=== PATIENT | male | born 1940 | race Caucasian/White ===

== ENCOUNTER 2018-06-27 15:30 | Inpatient (IN) | payer MEDICARE, OTHER ==
[~2018-06-27] VITALS: Ht 185.4 cm; Wt 108.0 kg
[~2018-06-27 15:30] MED LIST: AMLO1TAB39 PO; CLON-285 PO; GABA-532 PO; GEMF600T4 PO; LEVO75TA PO; LISI30TA39 PO; MELO15TA13 PO; METF500T PO; PHEN-716 PO; SIMV20TA5 PO; [UNRECOGNIZED DRUG - CODE] PO
[2018-06-27] MEDS ORDERED: normal saline 1000ML IV soln IVB ONE ×2 (15:55→16:50)
[2018-06-27] MEDS ORDERED: ondansetron/PF 4mg/2ml inj IV ONE (15:55)
[2018-06-27] MEDS ORDERED: SYNJARDY PO (16:05)
[2018-06-27] MEDS ORDERED: PIOG15TA8 PO (16:07)
[2018-06-27] MEDS ORDERED: HYDR-4353 PO (16:08)
[2018-06-27] MEDS ORDERED: NPH,100V2 SQ (16:09)
[2018-06-27 16:32] LABS: BASOPHILS % (AUTO) 0 % (0-1); EOSINOPHILS % (AUTO) 0 % (0-6); HEMATOCRIT 34.5 % (42.0-52.0); HEMOGLOBIN 11.7 g/dl (14.0-17.9); LYMPHOCYTES # (AUTO) 0.6 X10'3 (1.1-4.8); LYMPHOCYTES % (AUTO) 4.2 % (21-51); MEAN CORPUSCULAR HEMOGLOBIN 32.3 PG (27.0-31.0); MEAN CORPUSCULAR HGB CONC 33.8 % (33.0-36.5); MEAN CORPUSCULAR VOLUME 95.5 FL (78-98); MEAN PLATELET VOLUME 8.3 FL (7.4-10.4); MONOCYTES # (AUTO) 0.9 X10'3 (0-0.9); MONOCYTES % (AUTO) 6.2 % (2-12); NEUTROPHILS # (AUTO) 12.8 X10'3 (1.8-7.7); NEUTROPHILS % (AUTO) 89.6 % (42-75); PLATELET COUNT 250 X10'3 (140-440); RED BLOOD COUNT 3.61 X10'6 (4.70-6.10); RED CELL DISTRIBUTION WIDTH 13.2 % (11.5-14.5); WHITE BLOOD COUNT 14.2 X10'3 (4.5-11.0)
[2018-06-27 16:53] LABS: ALANINE AMINOTRANSFERASE 24 U/L (12-78); ALBUMIN/GLOBULIN RATIO 0.6 (1.1-1.5); ALKALINE PHOSPHATASE 143 IU/L (46-116); ANION GAP 14 (8-16); ASPARTATE AMINO TRANSFERASE 44 U/L (10-37); BILIRUBIN,TOTAL 0.7 MG/DL (0.1-1.0); BLOOD UREA NITROGEN 62 MG/DL (7-18); BUN/CREATININE RATIO 23.7 (5.4-32.0); CALCIUM 8.9 MG/DL (8.5-10.1); CHLORIDE 96 MMOL/L (99-107); CREATININE 2.62 MG/DL (0.60-1.10); GLUCOSE 114 MG/DL (70-104); POTASSIUM 4.5 MMOL/L (3.5-5.1); SODIUM 133 MMOL/L (135-145); TOTAL CARBON DIOXIDE 22.8 MMOL/L (24-32); TOTAL PROTEIN 7.7 G/DL (6.4-8.2); eGFR 24 ML/MIN
[2018-06-27] MEDS ORDERED: pneumococcal 23-VAL P-sac vacc 25 mcg/0.5ml vial IMVAC ONE (17:00)
[2018-06-27 17:01] LABS: PARTIAL THROMBOPLASTIN TIME 33 SECONDS (22-32); PROTHROMBIN TIME 10.4 SECONDS (9.0-12.0)
[2018-06-27 17:07] LABS: PLATELET ESTIMATE NORMAL; TOTAL CELLS COUNTED 100
[2018-06-27 17:11] LABS: CLARITY,URINE CLOUDY (Clear); COLOR,URINE YELLOW (Yellow); GLUCOSE, URINE >=1000 mg/dl (Neg); KETONES,URINE TRACE mg/dl (Neg); LEUKOCYTE ESTERASE ,URINE NEGATIVE (Neg); NITRITES, URINE NEGATIVE (Neg); OCCULT BLOOD,URINE LARGE (Neg); PH,URINE 5.5 (4.8-8.0); PROTEIN,URINE 100 mg/dl (Neg)
[2018-06-27 17:29] LABS: UA COLLECTION TYPE CLN CATCH MIDSTREAM
[2018-06-27 17:31] LABS: COARSE GRANULAR CAST 0-3 /LPF (NEGATIVE); HYALINE CASTS 0-3 /LPF (NEGATIVE); MUCUS STRANDS FEW /LPF (Neg); SQUAMOUS EPITHELIAL CELL,UR FEW /LPF (FEW)
[2018-06-27 17:32] LABS: AMORPHOUS URATES 2+; BACTERIA,URINE NONE SEEN /HPF (Neg); RBC,URINE NONE SEEN /HPF (0-2); TRANSITIONAL EPI CELLS,URINE FEW /HPF; WBC,URINE 0-4 /HPF (0-4)
[2018-06-27] MEDS ORDERED: levoFLOXACIN-Levaquin 500mg/D5 100 ML IV ONE (17:45)
[2018-06-27] MEDS ORDERED: HYDROcodone/acetaminophen 10/325mg tab PO ONE (18:45)
[2018-06-27] MEDS: normal saline 1000ml 1,000 ML IV SCH (19:46)
[2018-06-27] MEDS ORDERED: HYDROcodone/acetaminophen 5mg/325mg tablet PO PRN (19:50)
[2018-06-27] MEDS ORDERED: mag hydrox/Alum hydrox/simeth 30ml oral suspension PO PRN (19:50)
[2018-06-27] MEDS ORDERED: acetaminophen 325mg tablet PO PRN ×2 (19:50)
[2018-06-27] MEDS ORDERED: magnesium hydroxide 30ml (MOM) UD suspension PO PRN (19:50)
[2018-06-27] MEDS ORDERED: ondansetron/PF 4mg/2ml inj IV PRN (19:50)
[2018-06-27] MEDS ORDERED: dextrose 50%-water 50ml dispensing syringe IV PRN ×2 (19:50)
[2018-06-27] MEDS ORDERED: glucagon, human recombinant 1mg kit SUBCUT PRN (19:50)
[2018-06-27] MEDS ORDERED: MESSAGE TO PHARMACY PO ONE (19:50)
[2018-06-27] MEDS ORDERED: dextrose ORAL solution 15 GM/59 ML bottle PO PRN ×2 (19:50)
[2018-06-27 20:25] LABS: HEMOGLOBIN A1C 7.2 % (4.5-6.2)
[2018-06-27] MEDS: gabapentin 300mg capsule PO SCH (20:51)
[2018-06-27] MEDS: insulin glargine (Lantus) pen - multi-dose SQ SCH (21:00)
[2018-06-27] MEDS: gemfibrozil 600mg tablet PO SCH (22:14)
[2018-06-27 23:53] VITALS: BP 128/70
[2018-06-28 05:57] LABS: BASOPHILS % (AUTO) 0 % (0-1); EOSINOPHILS # (AUTO) 0.1 X10'3 (0-0.9); EOSINOPHILS % (AUTO) 0.9 % (0-6); HEMATOCRIT 34.2 % (42.0-52.0); HEMOGLOBIN 11.5 g/dl (14.0-17.9); LYMPHOCYTES # (AUTO) 0.6 X10'3 (1.1-4.8); LYMPHOCYTES % (AUTO) 3.8 % (21-51); MEAN CORPUSCULAR HEMOGLOBIN 32.6 PG (27.0-31.0); MEAN CORPUSCULAR HGB CONC 33.7 % (33.0-36.5); MEAN CORPUSCULAR VOLUME 96.6 FL (78-98); MEAN PLATELET VOLUME 8.4 FL (7.4-10.4); MONOCYTES # (AUTO) 0.9 X10'3 (0-0.9); NEUTROPHILS # (AUTO) 13.2 X10'3 (1.8-7.7); NEUTROPHILS % (AUTO) 89.3 % (42-75); PLATELET COUNT 250 X10'3 (140-440); RED BLOOD COUNT 3.54 X10'6 (4.70-6.10); RED CELL DISTRIBUTION WIDTH 13.6 % (11.5-14.5); WHITE BLOOD COUNT 14.8 X10'3 (4.5-11.0)
[2018-06-28 06:12] LABS: ALBUMIN 2.7 G/DL (3.4-5.0); ANION GAP 15 (8-16); BLOOD UREA NITROGEN 47 MG/DL (7-18); BUN/CREATININE RATIO 23.3 (5.4-32.0); CALCIUM 8.4 MG/DL (8.5-10.1); CHLORIDE 102 MMOL/L (99-107); CREATININE 2.02 MG/DL (0.60-1.10); GLUCOSE 164 MG/DL (70-104); POTASSIUM 5.1 MMOL/L (3.5-5.1); SODIUM 135 MMOL/L (135-145); TOTAL CARBON DIOXIDE 18.2 MMOL/L (24-32); eGFR 32 ML/MIN
[2018-06-28 08:00] VITALS: BP 114/61
[2018-06-28] MEDS ORDERED: AMLODIPINE BES PO SCH (08:00)
[2018-06-28] MEDS ORDERED: LISINOPRIL 30 MG PO SCH (08:00)
[2018-06-28] MEDS ORDERED: OLMESARTAN MED PO SCH (08:00)
[2018-06-28] MEDS ORDERED: losartan 50mg tablet PO SCH (08:00)
[2018-06-28] MEDS ORDERED: amLODIPine 5mg tablet PO SCH (08:00)
[2018-06-28] MEDS ORDERED: levoFLOXACIN-Levaquin 500mg/D5 100 ML IV SCH (08:00)
[2018-06-28] MEDS: lisinopril 10 MG tablet PO SCH (08:06)
[2018-06-28] MEDS: gemfibrozil 600mg tablet PO SCH ×2 (08:06→19:39)
[2018-06-28] MEDS: levoTHYROXINE 75mcg tablet PO SCH (08:07)
[2018-06-28] MEDS: gabapentin 300mg capsule PO SCH ×2 (08:07→19:38)
[2018-06-28] MEDS: enoxaparin 40mg/0.4ml syringe SUBCUT SCH (08:07)
[2018-06-28] MEDS: pioglitazone 15mg tablet PO SCH (09:53)
[2018-06-28] MEDS: normal saline 1000ml 1,000 ML IV SCH (09:55)
[2018-06-28 12:00] VITALS: BP 122/65
[2018-06-28] MEDS: insulin Lispro (HumaLOG) vial - multi-dose SQ SCH ×2 (13:19→19:03)
[2018-06-28] MEDS: lactobacillus rhamnosus 10,000 MMU CELLS/CAPSULE PO SCH (19:38)
[2018-06-28 20:00] VITALS: BP 140/62
[2018-06-28] MEDS: insulin glargine (Lantus) pen - multi-dose SQ SCH (22:07)
[2018-06-29] VITALS: BP 121/54
[2018-06-29 05:33] LABS: BASOPHILS % (AUTO) 0 % (0-1); EOSINOPHILS # (AUTO) 0.1 X10'3 (0-0.9); EOSINOPHILS % (AUTO) 0.8 % (0-6); HEMATOCRIT 33.9 % (42.0-52.0); HEMOGLOBIN 11.5 g/dl (14.0-17.9); LYMPHOCYTES # (AUTO) 0.9 X10'3 (1.1-4.8); LYMPHOCYTES % (AUTO) 6.3 % (21-51); MEAN CORPUSCULAR HEMOGLOBIN 32.7 PG (27.0-31.0); MEAN CORPUSCULAR HGB CONC 33.9 % (33.0-36.5); MEAN CORPUSCULAR VOLUME 96.4 FL (78-98); MEAN PLATELET VOLUME 8.3 FL (7.4-10.4); MONOCYTES # (AUTO) 0.9 X10'3 (0-0.9); MONOCYTES % (AUTO) 6.1 % (2-12); NEUTROPHILS # (AUTO) 12.7 X10'3 (1.8-7.7); NEUTROPHILS % (AUTO) 86.8 % (42-75); PLATELET COUNT 271 X10'3 (140-440); RED BLOOD COUNT 3.52 X10'6 (4.70-6.10); RED CELL DISTRIBUTION WIDTH 13.8 % (11.5-14.5); WHITE BLOOD COUNT 14.7 X10'3 (4.5-11.0)
[2018-06-29 05:42] LABS: ALBUMIN 2.4 G/DL (3.4-5.0); ANION GAP 19 (8-16); BLOOD UREA NITROGEN 41 MG/DL (7-18); BUN/CREATININE RATIO 27.9 (5.4-32.0); CALCIUM 8.9 MG/DL (8.5-10.1); CHLORIDE 102 MMOL/L (99-107); CREATININE 1.47 MG/DL (0.60-1.10); GLUCOSE 158 MG/DL (70-104); POTASSIUM 4.4 MMOL/L (3.5-5.1); SODIUM 136 MMOL/L (135-145); TOTAL CARBON DIOXIDE 15.5 MMOL/L (24-32); eGFR 47 ML/MIN
[2018-06-29 07:05] VITALS: BP 139/66
[2018-06-29] MEDS: levoTHYROXINE 75mcg tablet PO SCH (07:20)
[2018-06-29] MEDS: lisinopril 10 MG tablet PO SCH (07:20)
[2018-06-29] MEDS: pioglitazone 15mg tablet PO SCH (07:20)
[2018-06-29] MEDS: lactobacillus rhamnosus 10,000 MMU CELLS/CAPSULE PO SCH ×2 (07:20→20:21)
[2018-06-29] MEDS: gabapentin 300mg capsule PO SCH ×2 (07:20→20:22)
[2018-06-29] MEDS: gemfibrozil 600mg tablet PO SCH ×2 (07:20→20:22)
[2018-06-29] MEDS: enoxaparin 40mg/0.4ml syringe SUBCUT SCH (07:21)
[2018-06-29] MEDS ORDERED: levoFLOXACIN-Levaquin 250mg/D5 100 ML IV SCH (08:00)
[2018-06-29] MEDS: insulin Lispro (HumaLOG) vial - multi-dose SQ SCH ×3 (09:42→18:31)
[2018-06-29] MEDS ORDERED: EMPA1TAB7 PO (10:56)
[2018-06-29] MEDS: normal saline 1000ml 1,000 ML IV SCH (11:40)
[2018-06-29 12:09] VITALS: BP 139/67
[2018-06-29] MEDS: CefTRIAXone/D5W-Rocephin 1gm 50 ML IV SCH (12:53)
[2018-06-29] MEDS ORDERED: levoFLOXACIN-Levaquin 250mg/D5 50 ML IV SCH (14:07)
[2018-06-29 19:00] VITALS: BP 142/55
[2018-06-29] MEDS: HYDROcodone/acetaminophen 10/325mg tab PO PRN (20:23)
[2018-06-29] MEDS: insulin glargine (Lantus) pen - multi-dose SQ SCH (22:19)
[2018-06-30] VITALS: BP 126/65
[2018-06-30] MEDS: normal saline 1000ml 1,000 ML IV SCH ×2 (01:01→16:26)
[2018-06-30 05:59] LABS: BASOPHILS # (AUTO) 0.1 X10'3 (0-0.2); BASOPHILS % (AUTO) 0.9 % (0-1); EOSINOPHILS % (AUTO) 0 % (0-6); HEMATOCRIT 34.5 % (42.0-52.0); HEMOGLOBIN 11.6 g/dl (14.0-17.9); LYMPHOCYTES % (AUTO) 5.9 % (21-51); MEAN CORPUSCULAR HEMOGLOBIN 32.4 PG (27.0-31.0); MEAN CORPUSCULAR HGB CONC 33.5 % (33.0-36.5); MEAN CORPUSCULAR VOLUME 96.7 FL (78-98); MEAN PLATELET VOLUME 8.6 FL (7.4-10.4); MONOCYTES # (AUTO) 1.1 X10'3 (0-0.9); MONOCYTES % (AUTO) 6.4 % (2-12); NEUTROPHILS # (AUTO) 14.7 X10'3 (1.8-7.7); NEUTROPHILS % (AUTO) 86.8 % (42-75); PLATELET COUNT 327 X10'3 (140-440); RED BLOOD COUNT 3.56 X10'6 (4.70-6.10); RED CELL DISTRIBUTION WIDTH 13.8 % (11.5-14.5)
[2018-06-30 06:02] LABS: ALBUMIN 2.2 G/DL (3.4-5.0); ANION GAP 16 (8-16); BLOOD UREA NITROGEN 37 MG/DL (7-18); BUN/CREATININE RATIO 27.8 (5.4-32.0); CALCIUM 9.1 MG/DL (8.5-10.1); CHLORIDE 104 MMOL/L (99-107); CREATININE 1.33 MG/DL (0.60-1.10); GLUCOSE 157 MG/DL (70-104); POTASSIUM 4.3 MMOL/L (3.5-5.1); SODIUM 141 MMOL/L (135-145); TOTAL CARBON DIOXIDE 20.6 MMOL/L (24-32); eGFR 52 ML/MIN
[2018-06-30 07:00] VITALS: BP 130/74
[2018-06-30] MEDS: enoxaparin 40mg/0.4ml syringe SUBCUT SCH (07:16)
[2018-06-30] MEDS: gemfibrozil 600mg tablet PO SCH ×2 (07:17→19:26)
[2018-06-30] MEDS: CefTRIAXone/D5W-Rocephin 1gm 50 ML IV SCH (07:17)
[2018-06-30] MEDS: lisinopril 10 MG tablet PO SCH (07:18)
[2018-06-30] MEDS: pioglitazone 15mg tablet PO SCH (07:18)
[2018-06-30] MEDS: lactobacillus rhamnosus 10,000 MMU CELLS/CAPSULE PO SCH ×2 (07:19→19:26)
[2018-06-30] MEDS: levoTHYROXINE 75mcg tablet PO SCH (07:19)
[2018-06-30] MEDS: gabapentin 300mg capsule PO SCH ×2 (07:19→19:26)
[2018-06-30] MEDS: HYDROcodone/acetaminophen 10/325mg tab PO PRN ×2 (07:28→19:27)
[2018-06-30] MEDS ORDERED: iohexol 350MG/ML 100ml bottle IV ONE (07:59)
[2018-06-30] MEDS ORDERED: levoFLOXACIN-Levaquin 250mg/D5 50 ML IV SCH (08:00)
[2018-06-30] MEDS: MESSAGE TO NURSING PO NR ×2 (10:10→10:11)
[2018-06-30 11:00] VITALS: BP 121/70
[2018-06-30 11:40] LABS: PLATELET ESTIMATE NORMAL; TOTAL CELLS COUNTED 100
[2018-06-30] MEDS: insulin Lispro (HumaLOG) vial - multi-dose SQ SCH ×2 (13:18→19:16)
[2018-06-30] MEDS: cefepime 2g/NS 100ml ADVANTAGE 100 ML IV SCH (16:25)
[2018-06-30 20:00] VITALS: BP 150/67
[2018-06-30] MEDS: insulin glargine (Lantus) pen - multi-dose SQ SCH (21:19)
[2018-07-01] VITALS: BP 121/59
[2018-07-01] MEDS: cefepime 2g/NS 100ml ADVANTAGE 100 ML IV SCH ×2 (04:48→15:17)
[2018-07-01] MEDS: normal saline 1000ml 1,000 ML IV SCH ×2 (04:49→21:34)
[2018-07-01 05:54] LABS: BASOPHILS % (AUTO) 0 % (0-1); EOSINOPHILS # (AUTO) 0.3 X10'3 (0-0.9); EOSINOPHILS % (AUTO) 1.8 % (0-6); HEMATOCRIT 32.9 % (42.0-52.0); HEMOGLOBIN 10.9 g/dl (14.0-17.9); LYMPHOCYTES # (AUTO) 1.2 X10'3 (1.1-4.8); LYMPHOCYTES % (AUTO) 7.8 % (21-51); MEAN CORPUSCULAR HEMOGLOBIN 32.1 PG (27.0-31.0); MEAN CORPUSCULAR HGB CONC 33.2 % (33.0-36.5); MEAN CORPUSCULAR VOLUME 96.8 FL (78-98); MONOCYTES # (AUTO) 1.2 X10'3 (0-0.9); NEUTROPHILS # (AUTO) 12.4 X10'3 (1.8-7.7); NEUTROPHILS % (AUTO) 82.4 % (42-75); PLATELET COUNT 375 X10'3 (140-440); WHITE BLOOD COUNT 15.1 X10'3 (4.5-11.0)
[2018-07-01 06:01] LABS: ANION GAP 14 (8-16); BLOOD UREA NITROGEN 33 MG/DL (7-18); BUN/CREATININE RATIO 28.2 (5.4-32.0); CALCIUM 8.7 MG/DL (8.5-10.1); CHLORIDE 106 MMOL/L (99-107); CREATININE 1.17 MG/DL (0.60-1.10); GLUCOSE 148 MG/DL (70-104); POTASSIUM 4.1 MMOL/L (3.5-5.1); SODIUM 141 MMOL/L (135-145); TOTAL CARBON DIOXIDE 21.3 MMOL/L (24-32); eGFR 61 ML/MIN
[2018-07-01 07:18] LABS: PLATELET ESTIMATE NORMAL; TOTAL CELLS COUNTED 100
[2018-07-01 07:22] VITALS: BP 126/64
[2018-07-01] MEDS: enoxaparin 40mg/0.4ml syringe SUBCUT SCH (07:38)
[2018-07-01] MEDS: lisinopril 10 MG tablet PO SCH (07:39)
[2018-07-01] MEDS: gemfibrozil 600mg tablet PO SCH ×2 (07:39→21:33)
[2018-07-01] MEDS: levoTHYROXINE 75mcg tablet PO SCH (07:40)
[2018-07-01] MEDS: lactobacillus rhamnosus 10,000 MMU CELLS/CAPSULE PO SCH ×2 (07:40→21:33)
[2018-07-01] MEDS: gabapentin 300mg capsule PO SCH ×2 (07:40→21:33)
[2018-07-01] MEDS: pioglitazone 15mg tablet PO SCH (07:40)
[2018-07-01] MEDS: HYDROcodone/acetaminophen 10/325mg tab PO PRN ×2 (07:50→21:34)
[2018-07-01] MEDS: insulin Lispro (HumaLOG) vial - multi-dose SQ SCH ×3 (08:21→18:49)
[2018-07-01] MEDS: MESSAGE TO NURSING PO NR (10:26)
[2018-07-01 11:53] VITALS: BP 121/53
[2018-07-01] MEDS ORDERED: lactose-reduced food (Ensure High Protein) 237ml bottle PO SCH (18:00)
[2018-07-01 20:00] VITALS: BP 144/86
[2018-07-01] MEDS: insulin glargine (Lantus) pen - multi-dose SQ SCH (21:40)
[2018-07-02] VITALS: BP 138/68
[2018-07-02] MEDS: cefepime 2g/NS 100ml ADVANTAGE 100 ML IV SCH (05:01)
[2018-07-02 06:05] LABS: BASOPHILS # (AUTO) 0.1 X10'3 (0-0.2); BASOPHILS % (AUTO) 1.2 % (0-1); EOSINOPHILS # (AUTO) 0.1 X10'3 (0-0.9); EOSINOPHILS % (AUTO) 0.9 % (0-6); HEMATOCRIT 36.4 % (42.0-52.0); HEMOGLOBIN 11.9 g/dl (14.0-17.9); LYMPHOCYTES # (AUTO) 1.4 X10'3 (1.1-4.8); LYMPHOCYTES % (AUTO) 11.1 % (21-51); MEAN CORPUSCULAR HEMOGLOBIN 31.7 PG (27.0-31.0); MEAN CORPUSCULAR HGB CONC 32.8 % (33.0-36.5); MEAN CORPUSCULAR VOLUME 96.5 FL (78-98); MEAN PLATELET VOLUME 8.2 FL (7.4-10.4); MONOCYTES # (AUTO) 0.8 X10'3 (0-0.9); MONOCYTES % (AUTO) 5.9 % (2-12); NEUTROPHILS # (AUTO) 10.2 X10'3 (1.8-7.7); NEUTROPHILS % (AUTO) 80.9 % (42-75); PLATELET COUNT 439 X10'3 (140-440); RED BLOOD COUNT 3.77 X10'6 (4.70-6.10); RED CELL DISTRIBUTION WIDTH 14.5 % (11.5-14.5); WHITE BLOOD COUNT 12.7 X10'3 (4.5-11.0)
[2018-07-02 06:28] LABS: ALBUMIN 2.1 G/DL (3.4-5.0); ANION GAP 14 (8-16); BLOOD UREA NITROGEN 27 MG/DL (7-18); BUN/CREATININE RATIO 24.5 (5.4-32.0); CALCIUM 8.9 MG/DL (8.5-10.1); CHLORIDE 106 MMOL/L (99-107); GLUCOSE 144 MG/DL (70-104); POTASSIUM 3.7 MMOL/L (3.5-5.1); SODIUM 141 MMOL/L (135-145); TOTAL CARBON DIOXIDE 21.3 MMOL/L (24-32); eGFR 65 ML/MIN
[2018-07-02 06:32] LABS: TOTAL CELLS COUNTED 100
[2018-07-02 06:33] LABS: PLATELET ESTIMATE NORMAL
[2018-07-02 06:55] VITALS: BP 145/70
[2018-07-02] MEDS: lactobacillus rhamnosus 10,000 MMU CELLS/CAPSULE PO SCH (07:54)
[2018-07-02] MEDS: gemfibrozil 600mg tablet PO SCH (07:55)
[2018-07-02] MEDS: pioglitazone 15mg tablet PO SCH (07:55)
[2018-07-02] MEDS: levoTHYROXINE 75mcg tablet PO SCH (07:55)
[2018-07-02] MEDS: gabapentin 300mg capsule PO SCH (07:56)
[2018-07-02] MEDS: HYDROcodone/acetaminophen 10/325mg tab PO PRN (07:58)
[2018-07-02] MEDS: lisinopril 10 MG tablet PO SCH (07:58)
[2018-07-02] MEDS: enoxaparin 40mg/0.4ml syringe SUBCUT SCH (08:01)
[2018-07-02] MEDS: insulin Lispro (HumaLOG) vial - multi-dose SQ SCH ×2 (08:46→13:23)
[2018-07-02] MEDS ORDERED: CEFD300C3 PO (10:50)
[2018-07-02] MEDS: normal saline 1000ml 1,000 ML IV SCH (11:00)
[2018-07-02 11:47] VITALS: BP 145/64
== END 2018-07-02 13:51 | disposition home or self-care (01) | DRG 871 ==
LOC: ER 15:32 → ED HOLD 19:46 → EDBEDREQ 20:27 → SUR 3N 21:00
PROVIDERS: ADMIT Hospitalist; ATTEND Family Medicine
PROC: B32T1ZZ Computerized Tomography (CT Scan) of Left Pulmonary Artery using Low Osmolar Contrast (ICD-10-PCS; principal; 2018-06-30)
PROC: B3201ZZ Computerized Tomography (CT Scan) of Thoracic Aorta using Low Osmolar Contrast (ICD-10-PCS; 2018-06-30)
PROC: B32S1ZZ Computerized Tomography (CT Scan) of Right Pulmonary Artery using Low Osmolar Contrast (ICD-10-PCS; 2018-06-30)
DX: A41.9 Sepsis, unspecified organism (principal); J18.9 Pneumonia, unspecified organism; E44.1 Mild protein-calorie malnutrition; E87.1 Hypo-osmolality and hyponatremia; N17.9 Acute kidney failure, unspecified; R04.2 Hemoptysis; E03.9 Hypothyroidism, unspecified; E11.42 Type 2 diabetes mellitus with diabetic polyneuropathy; E86.0 Dehydration; I10 Essential (primary) hypertension; I25.10 Atherosclerotic heart disease of native coronary artery without angina pectoris; Z28.21 Immunization not carried out because of patient refusal; Z68.31 Body mass index [BMI] 31.0-31.9, adult
CPT/HCPCS: 36415; 70450; 71045; 71275; 80048; 80053; 81001; 82948; 83036; 83605; 84443; 84484; 85025; 85610; 85730; 87040; 87070; 87502; 87503; 90732; 93005; 94667; 94760; 96361; 96365; 97110; 97116; 97161; 97535; 99285; G0378; J0692; J0696; J1650; J1815; J1956; J2405; J7030; Q9967

== ENCOUNTER 2020-12-12 05:38 | Day surgery (SDC) | payer MEDICARE, OTHER ==
[2020-12-11 14:25] LABS: BASOPHILS % (AUTO) 0.2 % (0-1); EOSINOPHILS # (AUTO) 0.1 X10'3 (0-0.9); EOSINOPHILS % (AUTO) 0.9 % (0-6); HEMATOCRIT 42.7 % (42.0-52.0); HEMOGLOBIN 14.4 g/dl (14.0-17.9); LYMPHOCYTES # (AUTO) 1.7 X10'3 (1.1-4.8); MEAN CORPUSCULAR HEMOGLOBIN 32.6 PG (27.0-31.0); MEAN CORPUSCULAR HGB CONC 33.7 g/dL (33.0-36.5); MEAN CORPUSCULAR VOLUME 96.9 FL (78-98); MONOCYTES # (AUTO) 0.6 X10'3 (0-0.9); MONOCYTES % (AUTO) 7.6 % (2-12); NEUTROPHILS # (AUTO) 5.2 X10'3 (1.8-7.7); NEUTROPHILS % (AUTO) 69.3 % (42-75); PLATELET COUNT 231 X10'3 (140-440); RED CELL DISTRIBUTION WIDTH 13.3 % (11.5-14.5); WHITE BLOOD COUNT 7.5 X10'3 (4.5-11.0)
[2020-12-11 14:29] LABS: ALBUMIN 4.1 G/DL (3.4-5.0); ANION GAP 10 (8-16); BLOOD UREA NITROGEN 22 MG/DL (7-18); BUN/CREATININE RATIO 16.8 (5.4-32.0); CALCIUM 9.4 MG/DL (8.5-10.1); CHLORIDE 107 MMOL/L (99-107); CREATININE 1.31 MG/DL (0.60-1.10); GLUCOSE 261 MG/DL (70-104); POTASSIUM 4.1 MMOL/L (3.5-5.1); SODIUM 144 MMOL/L (135-145); eGFR 53 ML/MIN
[2020-12-11 14:32] LABS: PARTIAL THROMBOPLASTIN TIME 25 SECONDS (22-32)
[~2020-12-12] VITALS: Ht 177.8 cm; Wt 90.5 kg
[2020-12-12] VITALS (21 sets, daily range): BP systolic 111–194; BP diastolic 57–98
[~2020-12-12 05:38] MED LIST changes: -CLON-285 PO; +EMPA1TAB7 PO; -GEMF600T4 PO; +GEMF600T89 PO; +HYDR-4353 PO; -MELO15TA13 PO; -METF500T PO; +NPH,100V2 SQ; -PHEN-716 PO; +PIOG15TA8 PO; -SIMV20TA5 PO; -[UNRECOGNIZED DRUG - CODE] PO
[2020-12-12] MEDS ORDERED: LORazepam 0.5 MG tablet PO PRN ×2 (06:10→07:50)
[2020-12-12] MEDS ORDERED: diphenhydrAMINE 25mg capsule PO PRN (06:10)
[2020-12-12] MEDS ORDERED: normal saline 1,000 ML IV SCH (06:10)
[2020-12-12] MEDS ORDERED: AMLO5TAB16 PO (06:35)
[2020-12-12] MEDS ORDERED: FLO0.4C PO (06:35)
[2020-12-12] MEDS ORDERED: ATOR20TA66 PO (06:35)
[2020-12-12] MEDS ORDERED: FENO145T25 PO (06:35)
[2020-12-12] MEDS ORDERED: LEVO75TA7 PO (06:35)
[2020-12-12] MEDS ORDERED: GEMF600T PO (06:37)
[2020-12-12] MEDS ORDERED: LANTUS SQ (06:37)
[2020-12-12] MEDS ORDERED: LIDOcaine/PRILOcaine 5gm cream TP STA (07:01)
[2020-12-12] MEDS ORDERED: iohexol 350 MG/ML 50ML vial IV ONE ×2 (07:23→09:35)
[2020-12-12] MEDS ORDERED: midazolam 1 mg/ML 2ml injection ONE (07:23)
[2020-12-12] MEDS ORDERED: verapamil 2.5 mg/ml inj IV ONE (07:23)
[2020-12-12] MEDS ORDERED: heparin 1,000unit/ml 10ml vial 10 ML ONE ×2 (07:23→10:00)
[2020-12-12] MEDS ORDERED: fentaNYL/PF 50MCG/1 ML 2ML syringe ONE (07:23)
[2020-12-12] MEDS ORDERED: iohexol 350MG/ML 100ml bottle IV ONE ×2 (07:23→09:03)
[2020-12-12] MEDS ORDERED: LIDOcaine 1% (10mg/ml)w/preservative injection 20ml MDV ONE (07:23)
[2020-12-12] MEDS ORDERED: nitroGLYCERIN-Tridil 50MG/D5W 250 ML IV ONE (07:30)
[2020-12-12] MEDS ORDERED: LIDOcaine/PRILOcaine 5gm cream TP ONE (07:50)
[2020-12-12] MEDS ORDERED: sodium bicarbonate (8.4%) inj. 75 MEQ in dextrose 5% water 500ml 500 ML IV SCH ×2 (08:20→10:30)
[2020-12-12] MEDS ORDERED: heparin 25,000 UNIT/250ml bag 250 ML IV ONE (09:06)
[2020-12-12] MEDS ORDERED: clopidogrel 300mg tablet ONE (09:54)
[2020-12-12] MEDS ORDERED: HYDROcodone/acetaminophen 5mg/325mg tablet PO PRN (10:30)
[2020-12-12] MEDS ORDERED: HYDROcodone/acetaminophen 10/325mg tab PO PRN (10:30)
[2020-12-12] MEDS ORDERED: acetylcysteine 200 MG/ml 4ml vial PO ONE (10:30)
[2020-12-12] MEDS ORDERED: ticagrelor 90mg tablet PO SCH (20:00)
== END 2020-12-12 20:00 | disposition home or self-care (01) ==
LOC: SSTAY O 05:38
PROVIDERS: ATTEND Internal Medicine Cardiovascular Disease
DX: R94.39 Abnormal result of other cardiovascular function study (principal); I25.10 Atherosclerotic heart disease of native coronary artery without angina pectoris; I10 Essential (primary) hypertension; E78.5 Hyperlipidemia, unspecified; E11.9 Type 2 diabetes mellitus without complications; E66.3 Overweight; Z68.28 Body mass index [BMI] 28.0-28.9, adult; G47.33 Obstructive sleep apnea (adult) (pediatric); I65.21 Occlusion and stenosis of right carotid artery; Z98.890 Other specified postprocedural states; Z72.89 Other problems related to lifestyle; Z79.899 Other long term (current) drug therapy; Z79.4 Long term (current) use of insulin
CPT/HCPCS: 36415; 76937; 80048; 82948; 85025; 85347; 85610; 85730; 93005; 93458; 99152; 99153; C1725; C1751; C1760; C1769; C1874; C1894; C9600; J1644; J2001; J2250; J3010; J7030; J7040; Q0163; Q9967; A4620; A5120; A6258; A6449; J3490

== ENCOUNTER 2022-11-02 11:04 | Emergency (ER) | payer MEDICARE, OTHER ==
[~2022-11-02] VITALS: Ht 177.8 cm; Wt 100.0 kg
[~2022-11-02 11:04] MED LIST changes: -AMLO1TAB39 PO; +AMLO5TAB16 PO; +ATOR20TA66 PO; +FENO145T25 PO; +FLO0.4C PO; +GEMF600T PO; -HYDR-4353 PO; +LANTUS SQ; -LEVO75TA PO; +LEVO75TA7 PO; -NPH,100V2 SQ; -PIOG15TA8 PO
[2022-11-02 12:06] LABS: BASOPHILS % (AUTO) 0.1 % (0-1); EOSINOPHILS % (AUTO) 0.1 % (0-6); HEMOGLOBIN 11.9 g/dl (14.0-17.9); LYMPHOCYTES # (AUTO) 1.3 X10'3 (1.1-4.8); LYMPHOCYTES % (AUTO) 7.1 % (21-51); MEAN CORPUSCULAR HEMOGLOBIN 32.7 PG (27.0-31.0); MEAN CORPUSCULAR HGB CONC 33.2 g/dL (33.0-36.5); MEAN CORPUSCULAR VOLUME 98.7 FL (78-98); MEAN PLATELET VOLUME 9.5 FL (7.4-10.4); MONOCYTES # (AUTO) 1.3 X10'3 (0-0.9); MONOCYTES % (AUTO) 7.4 % (2-12); NEUTROPHILS % (AUTO) 85.3 % (42-75); PLATELET COUNT 227 X10'3 (140-440); RED BLOOD COUNT 3.65 X10'6 (4.70-6.10); RED CELL DISTRIBUTION WIDTH 13.5 % (11.5-14.5); WHITE BLOOD COUNT 17.6 X10'3 (4.5-11.0)
[2022-11-02 12:14] LABS: CLARITY,URINE CLOUDY (Clear); COLOR,URINE ORANGE (Yellow); GLUCOSE, URINE 100 mg/dl (Neg); KETONES,URINE NEGATIVE (Neg); NITRITES, URINE POSITIVE (Neg); OCCULT BLOOD,URINE LARGE (Neg); PH,URINE 7.5 (4.8-8.0); PROTEIN,URINE 100 mg/dl (Neg)
[2022-11-02 12:15] LABS: LEUKOCYTE ESTERASE ,URINE MODERATE (Neg)
[2022-11-02 12:18] LABS: UA COLLECTION TYPE CLN CATCH MIDSTREAM
[2022-11-02 12:22] LABS: ALANINE AMINOTRANSFERASE 38 U/L (12-78); ALBUMIN 3.4 G/DL (3.4-5.0); ALKALINE PHOSPHATASE 48 IU/L (46-116); ANION GAP 13 (8-16); ASPARTATE AMINO TRANSFERASE 30 U/L (10-37); BILIRUBIN,TOTAL 1.1 MG/DL (0.1-1.0); BLOOD UREA NITROGEN 20 MG/DL (7-18); CALCIUM 9.4 MG/DL (8.5-10.1); CHLORIDE 103 MMOL/L (99-107); CREATININE 1.43 MG/DL (0.60-1.10); GLUCOSE 206 MG/DL (70-104); POTASSIUM 4.5 MMOL/L (3.5-5.1); SODIUM 139 MMOL/L (135-145); TOTAL CARBON DIOXIDE 23.5 MMOL/L (24-32); TOTAL PROTEIN 6.7 G/DL (6.4-8.2); eGFR 47 ML/MIN
[2022-11-02 12:30] LABS: BACTERIA,URINE 4+ /HPF (Neg); MUCUS STRANDS FEW /LPF (Neg); RBC,URINE TNTC /HPF (0-2); SQUAMOUS EPITHELIAL CELL,UR FEW /LPF (FEW)
[2022-11-02] MEDS ORDERED: amox tr/potassium clavulanate 875/125mg TAB PO ONE (13:00)
[2022-11-02] MEDS ORDERED: PHEN-824 PO (13:05)
[2022-11-02] MEDS ORDERED: AMOX-117 PO (13:05)
[2022-11-02] MEDS ORDERED: phenazopyridine 100mg tablet PO ONE (13:10)
[2022-11-02 13:22] VITALS: BP 132/61
== END 2022-11-02 13:44 | disposition home or self-care (01) ==
LOC: ER 11:05
DX: N39.0 Urinary tract infection, site not specified (principal); I10 Essential (primary) hypertension; E11.9 Type 2 diabetes mellitus without complications
CPT/HCPCS: 36415; 80053; 81001; 85025; 87077; 87088; 87186; 99283

== ENCOUNTER 2022-11-06 15:32 | Emergency (ER) | payer MEDICARE, OTHER ==
[~2022-11-06] VITALS: Ht 177.8 cm; Wt 90.0 kg
[~2022-11-06 15:32] MED LIST changes: +AMOX-117 PO; +PHEN-824 PO
[2022-11-06 16:32] LABS: BASOPHILS % (AUTO) 0.2 % (0-1); EOSINOPHILS # (AUTO) 0.1 X10'3 (0-0.9); HEMATOCRIT 36.4 % (42.0-52.0); HEMOGLOBIN 12.1 g/dl (14.0-17.9); LYMPHOCYTES % (AUTO) 11.2 % (21-51); MEAN CORPUSCULAR HEMOGLOBIN 32.6 PG (27.0-31.0); MEAN CORPUSCULAR HGB CONC 33.3 g/dL (33.0-36.5); MEAN CORPUSCULAR VOLUME 97.9 FL (78-98); MEAN PLATELET VOLUME 8.6 FL (7.4-10.4); NEUTROPHILS # (AUTO) 6.9 X10'3 (1.8-7.7); NEUTROPHILS % (AUTO) 76.6 % (42-75); PLATELET COUNT 339 X10'3 (140-440); RED BLOOD COUNT 3.72 X10'6 (4.70-6.10); RED CELL DISTRIBUTION WIDTH 13.3 % (11.5-14.5)
[2022-11-06 16:44] LABS: ALANINE AMINOTRANSFERASE 50 U/L (12-78); ALBUMIN 3.2 G/DL (3.4-5.0); ALBUMIN/GLOBULIN RATIO 0.7 (1.1-1.5); ALKALINE PHOSPHATASE 106 IU/L (46-116); ANION GAP 11 (8-16); ASPARTATE AMINO TRANSFERASE 48 U/L (10-37); BILIRUBIN,TOTAL 0.6 MG/DL (0.1-1.0); BLOOD UREA NITROGEN 25 MG/DL (7-18); BUN/CREATININE RATIO 18.4 (10.0-20.0); CALCIUM 9.4 MG/DL (8.5-10.1); CHLORIDE 106 MMOL/L (99-107); CREATININE 1.36 MG/DL (0.60-1.10); GLUCOSE 121 MG/DL (70-104); LIPASE 87 U/L (73-393); POTASSIUM 4.2 MMOL/L (3.5-5.1); SODIUM 142 MMOL/L (135-145); TOTAL CARBON DIOXIDE 24.9 MMOL/L (24-32); TOTAL PROTEIN 7.5 G/DL (6.4-8.2); eGFR 50 ML/MIN
[2022-11-06 17:08] VITALS: BP 168/71
[2022-11-06 17:58] LABS: CLARITY,URINE CLEAR (Clear); COLOR,URINE ORANGE (Yellow)
[2022-11-06 18:02] LABS: UA COLLECTION TYPE VOIDED
[2022-11-06 18:04] LABS: BACTERIA,URINE FEW /HPF (Neg); MUCUS STRANDS NONE SEEN /LPF (Neg); SQUAMOUS EPITHELIAL CELL,UR NONE SEEN /LPF (FEW)
--- NOTE | 2022-11-06 18:08 | NUR ---
Bladder scan shows 45ML of urine
== END 2022-11-06 19:09 | disposition home or self-care (01) ==
LOC: ER 15:33
DX: N39.0 Urinary tract infection, site not specified (principal); R33.9 Retention of urine, unspecified; I11.0 Hypertensive heart disease with heart failure; I50.9 Heart failure, unspecified; E11.9 Type 2 diabetes mellitus without complications; Z79.899 Other long term (current) drug therapy
CPT/HCPCS: 80053; 81001; 83690; 85025; 87088; 99284

== ENCOUNTER 2022-11-08 13:30 | Emergency (ER) | payer MEDICARE, OTHER ==
[~2022-11-08] VITALS: Ht 177.8 cm; Wt 100.0 kg
[2022-11-08] MEDS ORDERED: opium/belladonna alkaloids No. 15A 30mg rectal suppository RC ONE (14:40)
[2022-11-08 14:52] LABS: BASOPHILS % (AUTO) 0.2 % (0-1); EOSINOPHILS % (AUTO) 0 % (0-6); HEMATOCRIT 33.8 % (42.0-52.0); LYMPHOCYTES # (AUTO) 1.6 X10'3 (1.1-4.8); LYMPHOCYTES % (AUTO) 10.2 % (21-51); MEAN CORPUSCULAR HEMOGLOBIN 31.9 PG (27.0-31.0); MEAN CORPUSCULAR HGB CONC 32.6 g/dL (33.0-36.5); MEAN CORPUSCULAR VOLUME 97.8 FL (78-98); MEAN PLATELET VOLUME 7.7 FL (7.4-10.4); MONOCYTES # (AUTO) 1.6 X10'3 (0-0.9); MONOCYTES % (AUTO) 10.3 % (2-12); NEUTROPHILS # (AUTO) 12.1 X10'3 (1.8-7.7); NEUTROPHILS % (AUTO) 79.3 % (42-75); PLATELET COUNT 357 X10'3 (140-440); RED BLOOD COUNT 3.45 X10'6 (4.70-6.10); RED CELL DISTRIBUTION WIDTH 13.5 % (11.5-14.5); WHITE BLOOD COUNT 15.3 X10'3 (4.5-11.0)
[2022-11-08 14:57] LABS: CLARITY,URINE SLIGHTLY CLOUDY (Clear); COLOR,URINE ORANGE (Yellow)
[2022-11-08 15:02] LABS: UA COLLECTION TYPE FOLEY CATH
[2022-11-08 15:03] LABS: BACTERIA,URINE NONE SEEN /HPF (Neg); MUCUS STRANDS FEW /LPF (Neg); SQUAMOUS EPITHELIAL CELL,UR NONE SEEN /LPF (FEW); WBC,URINE NONE SEEN /HPF (0-4)
[2022-11-08 15:09] LABS: ALANINE AMINOTRANSFERASE 36 U/L (12-78); ALBUMIN 2.9 G/DL (3.4-5.0); ALBUMIN/GLOBULIN RATIO 0.7 (1.1-1.5); ALKALINE PHOSPHATASE 106 IU/L (46-116); ANION GAP 9 (8-16); ASPARTATE AMINO TRANSFERASE 27 U/L (10-37); BILIRUBIN,TOTAL 0.6 MG/DL (0.1-1.0); BLOOD UREA NITROGEN 17 MG/DL (7-18); BUN/CREATININE RATIO 12.1 (10.0-20.0); CALCIUM 9.2 MG/DL (8.5-10.1); CHLORIDE 104 MMOL/L (99-107); GLUCOSE 258 MG/DL (70-104); POTASSIUM 4.1 MMOL/L (3.5-5.1); SODIUM 139 MMOL/L (135-145); TOTAL CARBON DIOXIDE 26.3 MMOL/L (24-32); TOTAL PROTEIN 6.9 G/DL (6.4-8.2); eGFR 49 ML/MIN
[2022-11-08 15:14] LABS: NUCLEATED RED BLOOD CELLS 1 /100WBC (0-0); TOTAL CELLS COUNTED 100
[2022-11-08 15:15] LABS: PLATELET ESTIMATE NORMAL
[2022-11-08 15:16] LABS: STOMATOCYTES FEW
[2022-11-08] MEDS ORDERED: tamsulosin 0.4mg capsule PO ONE (15:55)
[2022-11-08] MEDS ORDERED: OXYB5TAB16 PO (15:57)
[2022-11-08] MEDS ORDERED: DUTA0.5C40 PO (15:57)
[2022-11-08 16:13] VITALS: BP 167/79
== END 2022-11-08 16:57 | disposition home or self-care (01) ==
LOC: ER 13:30
DX: R33.9 Retention of urine, unspecified (principal); N32.89 Other specified disorders of bladder; I11.9 Hypertensive heart disease without heart failure; E11.9 Type 2 diabetes mellitus without complications; Z79.899 Other long term (current) drug therapy; Z79.1 Long term (current) use of non-steroidal anti-inflammatories (NSAID); Z79.2 Long term (current) use of antibiotics
CPT/HCPCS: 36415; 80053; 81001; 84145; 85007; 85025; 99284

== ENCOUNTER 2023-07-14 18:23 | Emergency (ER) | payer MEDICARE, OTHER ==
[~2023-07-14] VITALS: Ht 177.8 cm; Wt 97.3 kg
[~2023-07-14 18:23] MED LIST changes: -AMOX-117 PO; +OXYB5TAB16 PO
[2023-07-14 18:48] LABS: BASOPHILS # (AUTO) 0.1 X10'3 (0-0.2); BASOPHILS % (AUTO) 0.7 % (0-1); EOSINOPHILS % (AUTO) 0.1 % (0-6); HEMATOCRIT 41.4 % (42.0-52.0); HEMOGLOBIN 13.5 g/dl (14.0-17.9); LYMPHOCYTES # (AUTO) 1.8 X10'3 (1.1-4.8); LYMPHOCYTES % (AUTO) 10.3 % (21-51); MEAN CORPUSCULAR HEMOGLOBIN 31.7 PG (27.0-31.0); MEAN CORPUSCULAR HGB CONC 32.6 g/dL (33.0-36.5); MEAN PLATELET VOLUME 8.7 FL (7.4-10.4); MONOCYTES % (AUTO) 5.6 % (2-12); NEUTROPHILS # (AUTO) 14.4 X10'3 (1.8-7.7); NEUTROPHILS % (AUTO) 83.3 % (42-75); PLATELET COUNT 326 X10'3 (140-440); RED BLOOD COUNT 4.27 X10'6 (4.70-6.10); RED CELL DISTRIBUTION WIDTH 13.1 % (11.5-14.5); WHITE BLOOD COUNT 17.3 X10'3 (4.5-11.0)
[2023-07-14 19:00] LABS: ALANINE AMINOTRANSFERASE 30 U/L (12-78); ALBUMIN 3.9 G/DL (3.4-5.0); ALBUMIN/GLOBULIN RATIO 0.9 (1.1-1.5); ALKALINE PHOSPHATASE 65 IU/L (46-116); ANION GAP 12 (8-16); ASPARTATE AMINO TRANSFERASE 26 U/L (10-37); BILIRUBIN,TOTAL 0.4 MG/DL (0.1-1.0); BLOOD UREA NITROGEN 16 MG/DL (7-18); BUN/CREATININE RATIO 11.4 (10.0-20.0); CALCIUM 9.7 MG/DL (8.5-10.1); CHLORIDE 102 MMOL/L (99-107); GLUCOSE 238 MG/DL (70-104); POTASSIUM 4.2 MMOL/L (3.5-5.1); SODIUM 139 MMOL/L (135-145); TOTAL CARBON DIOXIDE 25.3 MMOL/L (24-32); TOTAL PROTEIN 8.2 G/DL (6.4-8.2); eCRCL 43 ML/MIN; eGFR 49 ML/MIN
[2023-07-14 19:06] LABS: PRO BRAIN NATRIURETIC PEPTIDE 281 PG/ML (0-450)
[2023-07-14] MEDS ORDERED: morphine 4 MG/ML inj SYRINge IV ONE (19:55)
[2023-07-14] MEDS ORDERED: aspirin 325mg tablet, delayed-release (Ecotrin) PO ONE (19:55)
[2023-07-14] MEDS ORDERED: nitroGLYCERIN 1gm ointment UD TP ONE (19:55)
[2023-07-14 20:11] LABS: D-DIMER 0.46 MG/L FEU (0-0.50)
[2023-07-14] MEDS ORDERED: azithromycin 250mg tablet PO ONE (21:40)
[2023-07-14] MEDS ORDERED: methylPREDNISolone sod succ 125mg/2ml vial IV ONE (21:40)
[2023-07-14] MEDS ORDERED: albuterol 2.5 MG/3 ML nebule NEB ONE (21:40)
[2023-07-14] MEDS ORDERED: CefTRIAXone 2gm/D5W 50ml BAG 50 ML IV ONE (21:40)
[2023-07-14 21:49] LABS: BILIRUBIN,URINE NEGATIVE (Neg); CLARITY,URINE SLIGHTLY CLOUDY (Clear); COLOR,URINE YELLOW (Yellow); GLUCOSE, URINE >=1000 mg/dl (Neg); KETONES,URINE NEGATIVE (Neg); LEUKOCYTE ESTERASE ,URINE NEGATIVE (Neg); NITRITES, URINE NEGATIVE (Neg); OCCULT BLOOD,URINE TRACE-INTACT (Neg); PH,URINE 5.5 (4.8-8.0); PROTEIN,URINE 30 mg/dl (Neg); UROBILINOGEN,URINE 0.2 E.U/dL (0.2-1.0)
[2023-07-14 22:04] LABS: UA COLLECTION TYPE CLN CATCH MIDSTREAM
[2023-07-14 22:07] LABS: BACTERIA,URINE 4+ /HPF (Neg); RBC,URINE 0-2 /HPF (0-2); WBC,URINE 50-100 /HPF (0-4)
[2023-07-14 22:08] LABS: MUCUS STRANDS FEW /LPF (Neg); SQUAMOUS EPITHELIAL CELL,UR FEW /LPF (FEW); TRANSITIONAL EPI CELLS,URINE FEW /HPF; WBC CLUMPS,URINE MODERATE /HPF (NEGATIVE)
[2023-07-14 22:18] LABS: THYROID STIMULATING HORMONE 2.66 ulU/ml (0.34-4.50)
[2023-07-14 22:29] VITALS: PULSE 86; RESP 18; O2SAT 92
[2023-07-14 22:36] VITALS: PULSE 85; RESP 16; O2SAT 100
[2023-07-15] MEDS ORDERED: AMOX-419 PO (00:39)
[2023-07-15] MEDS ORDERED: PRED20TA PO (00:39)
[2023-07-15] MEDS ORDERED: AZIT-164 PO (00:39)
[2023-07-15] MEDS ORDERED: acetaminophen 325mg tablet PO ONE (00:40)
[2023-07-15 01:03] VITALS: BP 126/73; PULSE 75; RESP 16; TEMP 98.3; O2SAT 95
== END 2023-07-15 01:22 | disposition home or self-care (01) ==
LOC: ER 18:23
DX: J18.9 Pneumonia, unspecified organism (principal); N39.0 Urinary tract infection, site not specified; I10 Essential (primary) hypertension; E11.9 Type 2 diabetes mellitus without complications; Z79.2 Long term (current) use of antibiotics; Z79.899 Other long term (current) drug therapy; Z79.84 Long term (current) use of oral hypoglycemic drugs
CPT/HCPCS: 36415; 71045; 80053; 81001; 83605; 83880; 84145; 84443; 84484; 85025; 85379; 87040; 87077; 87088; 87186; 93005; 94640; 96374; 96375; 99285; J0696; J2270; J2930; 94760

== ENCOUNTER 2025-01-04 20:09 | Emergency (ER) | payer MEDICARE, OTHER ==
[~2025-01-04] VITALS: Ht 177.8 cm; Wt 100.0 kg
[~2025-01-04 20:09] MED LIST changes: -FLO0.4C PO; -OXYB5TAB16 PO; +OXYB5TAB21 PO; +TAMS-55 PO
[2025-01-04 20:24] VITALS: TEMP 97.9
[2025-01-04 20:59] LABS: BASOPHILS % (AUTO) 0.3 % (0-1); EOSINOPHILS # (AUTO) 0.1 X10'3 (0-0.9); EOSINOPHILS % (AUTO) 1.1 % (0-6); HEMATOCRIT 37.6 % (42.0-52.0); HEMOGLOBIN 12.3 g/dl (14.0-17.9); LYMPHOCYTES # (AUTO) 1.6 X10'3 (1.1-4.8); LYMPHOCYTES % (AUTO) 28.2 % (21-51); MEAN CORPUSCULAR HEMOGLOBIN 31.9 PG (27.0-31.0); MEAN CORPUSCULAR HGB CONC 32.7 g/dL (33.0-36.5); MEAN CORPUSCULAR VOLUME 97.7 FL (78-98); MEAN PLATELET VOLUME 9.2 FL (7.4-10.4); MONOCYTES # (AUTO) 0.6 X10'3 (0-0.9); MONOCYTES % (AUTO) 11.1 % (2-12); NEUTROPHILS # (AUTO) 3.3 X10'3 (1.8-7.7); NEUTROPHILS % (AUTO) 59.3 % (42-75); PLATELET COUNT 244 X10'3 (140-440); RED BLOOD COUNT 3.85 X10'6 (4.70-6.10); RED CELL DISTRIBUTION WIDTH 13.7 % (11.5-14.5); WHITE BLOOD COUNT 5.6 X10'3 (4.5-11.0)
[2025-01-04 21:09] LABS: ALANINE AMINOTRANSFERASE 58 U/L (12-78); ALBUMIN 3.8 G/DL (3.4-5.0); ALKALINE PHOSPHATASE 58 IU/L (46-116); ANION GAP 13 (8-16); ASPARTATE AMINO TRANSFERASE 32 U/L (10-37); BILIRUBIN,TOTAL 0.3 MG/DL (0.1-1.0); BLOOD UREA NITROGEN 56 MG/DL (7-18); CALCIUM 8.7 MG/DL (8.5-10.1); CHLORIDE 104 MMOL/L (99-107); CREATININE 2.44 MG/DL (0.60-1.10); GLUCOSE 233 MG/DL (70-104); LIPASE 71 U/L (16-77); POTASSIUM 4.8 MMOL/L (3.5-5.1); SODIUM 137 MMOL/L (135-145); TOTAL CARBON DIOXIDE 19.6 MMOL/L (24-32); TOTAL PROTEIN 7.5 G/DL (6.4-8.2); eCRCL 24 ML/MIN; eGFR 25 ML/MIN
--- NOTE | 2025-01-04 22:21 | Physician Documentation ---
History of Present Illness ~ Chief Complaint: See Chief Complaint Stated Complaint: WEAKNESS/DIABETIC COMPLICATIONS Time Seen by MD: 22:19 OK to notify your PCP?: Yes Primary Medical Doctor: meryl EUGENE Patient presents to the emergency room with generalized symptoms of intermittent nausea, generalized weakness, left hip pain, decreased appetite and high blood sugars. Concern for possible urinary tract infection. Declining pain medicine at this time. Also having diarrhea and family's concern for dehydration. No fevers. Medication Reconciliation Allergies: Coded Allergies: No Known Allergies (Unverified , 11/08/22) Scheduled Amlodipine Besylate (Amlodipine Besylate), 1 TAB PO DAILY, (Reported) Atorvastatin Calcium (Atorvastatin Calcium), 1 TAB PO DAILY, (Reported) Empagliflozin/Metformin HCl (Synjardy 12.5-1,000 mg Tablet), 1 TAB PO DAILY, (Reported) Fenofibrate Nanocrystallized (Fenofibrate), 1 TAB PO DAILY, (Reported) Gabapentin (Gabapentin), 1 CAP PO BID, (Reported) Gemfibrozil (Gemfibrozil), 600 MG PO BID, (Reported) Gemfibrozil (Lopid), 1 TAB PO Q12H, (Reported) Insulin Glargine,Hum.rec.anlog* (Lantus*), 44 UNITS SQ HS, (Reported) Levothyroxine Sodium (Levothyroxine Sodium), 1 TAB PO DAILY, (Reported) Lisinopril* (Lisinopril*), 30 MG PO DAILY, (Reported) Oxybutynin Chloride (Oxybutynin Chloride), 1 TAB PO Q12H Phenazopyridine HCl (Pyridium), 1 TAB PO Q8H Tamsulosin Hcl* (Flomax*), 0.4 MG PO DAILY, (Reported) Past Medical History Past Medical History: Peripheral Neuropathy, Coronary Artery Disease, H ypertension, BPH, UTI, Diabetes Past Surgical History: orthopedic surgeries, tonsillectomy Alcohol Use: Other Drug Use: none Lives with: Family Lives In: Home Occupation: retired Review of Systems ROS All review of systems negative except as per HPI Physical Exam Vital Signs: Temperature: 97.9, Source: Temporal, Heart Rate: 76, Respiratory Rate: 15, BP: 138/81, Pulse Oximetry: 96, Weight: 100.000 Oxygen Flow Rate: 0 Physical Exam General: Patient is awake, alert, oriented x4 in no acute distress Head: Normocephalic and atraumatic. Eyes: Conjunctival normal. EOMI. PERRL. ENT: Mucous membranes dry. Neck: Supple, trachea is midline. Chest: Clear to auscultation bilaterally without rales, rhonchi, or wheezes. There is no accessory muscle use or retractions. Cardiac: RRR without murmurs, gallops, or rubs. Abd: Soft, nondistended, nontender, with normoactive bowel sounds. No guarding, rebound, or rigidity. Extremities: Normal strength. Normal range of motion. No deformities or edema. Back: No midline spinal tenderness to palpation to lower left lumbar back Skin: Warm and dry with no significant rash appreciated. Neuro: Cranial nerves II-XII grossly intact. No focal neuro deficits. Progress Results/Orders Results/Orders Orders - SHADE RICHEY MD Straight Cath For Urine Sample (01/04/25 20:41) Electrocardiogram (01/04/25 20:41) Ct Abdomen Pelvis (01/04/25 22:30) Covid19 Binax Poc Result Entry (01/04/25 22:31) Completed Orders - SHADE RICHEY MD Cbc/Diff (01/04/25 20:41) BMP (01/04/25 20:41) Lipase (01/04/25 20:41) CMP (01/04/25 20:41) Normal Saline 1000ml (Sodium Chloride 10 (01/04/25 22:30) Ct Abdomen Pelvis (01/04/25 22:30) Ua W/Microscopic, Cult If Ind (01/04/25 22:32) Medications Received in ER Medications (Trade) Dose Ordered Sig/Andressa Route PRN Reason Start Time Stop Time Status Last Admin Dose Admin (sodium chloride 1000ml IV soln) 2,000 ml ONCE ONCE IVB 01/04/25 22:30 01/04/25 22:31 DC 01/04/25 23:15 2,000 ML Vital Signs 01/04/25 01/04/25 01/04/25 01/04/25 20:24 21:39 23:34 23:41 Temp 97.9 Pulse 89 76 70 Resp 20 15 15 14 B/P (MAP) 139/68 138/81 (100) 144/77 (99) Pulse Ox 96 96 98 O2 Flow Rate 0 Laboratory Tests Test 01/04/25 20:33 01/04/25 20:47 01/04/25 22:32 Glucometer 236 H White Blood Count 5.6 Red Blood Count 3.85 L Hemoglobin 12.3 L Hematocrit 37.6 L Mean Corpuscular Volume 97.7 Mean Corpuscular Hemoglobin 31.9 H Mean Corpuscular Hemoglobin Concent 32.7 L Red Cell Distribution Width 13.7 Platelet Count 244 Mean Platelet Volume 9.2 Neutrophils (%) (Auto) 59.3 Lymphocytes (%) (Auto) 28.2 Monocytes (%) (Auto) 11.1 Eosinophils (%) (Auto) 1.1 Basophils (%) (Auto) 0.3 Neutrophils # (Auto) 3.3 Lymphocytes # (Auto) 1.6 Monocytes # (Auto) 0.6 Eosinophils # (Auto) 0.1 Basophils # (Auto) 0.0 CBC Comment Sodium Level 137 Potassium Level 4.8 Chloride Level 104 Carbon Dioxide Level 19.6 L Anion Gap 13 Blood Urea Nitrogen 56 H Creatinine 2.44 H Estimated GFR/1.73 m2 25 BUN/Creatinine Ratio 23.0 H Glucose Level 233 H Calcium Level 8.7 Total Bilirubin 0.3 Aspartate Amino Transf (AST/SGOT) 32 Alanine Aminotransferase (ALT/SGPT) 58 Alkaline Phosphatase 58 Total Protein 7.5 Albumin 3.8 Globulin 3.7 Albumin/Globulin Ratio 1.0 L Lipase 71 Chemistry Comments Urine Specimen Description Urinal Urine Color Yellow Urine Clarity Clear Urine pH 6.0 Urine Specific [place] >=1.030 Urine Protein 100 H Urine Glucose (UA) 100 H Urine Ketones Trace H Urine Occult Blood Negative Urine Nitrite Negative Urine Bilirubin Small Urine Urobilinogen 0.2 Urine Leukocyte Esterase Negative Urine RBC 0-2 Urine WBC 0-4 Urine Squamous Epithelial Cells Moderate Urine Bacteria None seen Urine Hyaline Casts 3-5 Urine Mucus Moderate Urine Culture Indicated Not ind Volume Urine Centrifuged 10 ml Urine Comment EKG/XRAY/CT/US/VASC/MRI EKG : Additional Comment EKG interpreted by myself shows time of 2043, rate 89, sinus rhythm, left axis deviation, no ST changes Medical Decision Making Findings Patient presents to the emergency room for evaluation of high sugars and generally not feeling well. Differentials include but are not limited to viral syndrome, dehydration, acute kidney injury, electrolyte disturbances therefore emergent labs and imaging ordered. CT scan reassuring. Labs show that patient has some degree of acute kidney injury likely from dehydration. After offering admission and utilizing shared decision-making patient would prefer to have IV fluids at our facility and then be discharged home with instructions to double his efforts of drinking water and to follow up with his doctor within the next week for re-evaluation and checking of his labs. ER precautions discussed. Departure Disposition: HOME / SELF CARE / HOMELESS Impression: Primary Impression: Dehydration Condition: Fair Discharge Instructions: Dehydration, Elderly Additional Instructions: Call your doctor tomorrow to arrange for close follow up for re-evaluation of your hydration and kidney status. Return for any worsening of symptoms. You are to double your efforts of staying hydrated Referrals: NO PRIMARY CARE PROVIDER (PCP) Education Educated: Patient, Family Educated regarding: diagnosis, treatment, need for follow up Signature Scribe Signature: No scribe Attestation: The note accurately reflects work and decisions made by me.Shade Richey MD 01/05/25 00:12 SHADE RICHEY MD January 04, 2025 22:21
[2025-01-04 22:50] LABS: BILIRUBIN,URINE SMALL (Neg); CLARITY,URINE CLEAR (Clear); COLOR,URINE YELLOW (Yellow); GLUCOSE, URINE 100 mg/dl (Neg); KETONES,URINE TRACE mg/dl (Neg); LEUKOCYTE ESTERASE ,URINE NEGATIVE (Neg); NITRITES, URINE NEGATIVE (Neg); OCCULT BLOOD,URINE NEGATIVE (Neg); PROTEIN,URINE 100 mg/dl (Neg); UROBILINOGEN,URINE 0.2 E.U/dL (0.2-1.0)
[2025-01-04 22:54] LABS: MUCUS STRANDS MODERATE /LPF (Neg); SQUAMOUS EPITHELIAL CELL,UR MODERATE /LPF (FEW); UA COLLECTION TYPE URINAL
[2025-01-04 22:58] LABS: BACTERIA,URINE NONE SEEN /HPF (Neg); RBC,URINE 0-2 /HPF (0-2); WBC,URINE 0-4 /HPF (0-4)
[2025-01-04] MEDS: normal saline 1000ML IV soln IVB ONE (23:15)
--- NOTE | 2025-01-04 23:53 | RADIOLOGY REPORT ---
Exam: CT CT ABDOMEN PELVIS History: left flank pain Comparison Study: None Technique: Multidetector spiral CT of the abdomen was performed from lung bases to pubic symphysis. Imaging was performed without IV contrast. Axial, coronal and sagittal multiplanar reformats were ob tained from the axial data set by the technologist. Radiation Dose : 1. Abdomen/Pelvis: CTDIvol mGy, DLP mGy*cm. Findings: Evaluation of solid organs is limited due to lack of intravenous contrast use. Lung Bases: Mild subsegmental atelectasis at left lung base. No pleural effusion. Normal heart size. No pericardial effusion. Coronary artery calcifications noted. Liver: Liver is normal in size. No focal lesions noted. Gallbladder and Biliary Tree: Two small calcified gallstones noted in the gallbladder which otherwise appears unremarkable. No evidence of biliary ductal dilatation. Spleen: No abnormality demonstrated. Pancreas: No abnormality demonstrated. Adrenal Glands: No abnormality demonstrated. Kidneys: No abnormality demonstrated. Cysts noted in lower pole of both kidneys, larger on the left side. No calculus noted. No hydroureteronephrosis. Bladder: Grossly unremarkable for degree of distention. Bowel: Stomach appears grossly unremarkable. No abnormally dilated or thick-walled loops of large or small bowel noted. Appendix appears unremarkable. Ascites: Absent Lymphadenopathy: No evidence of lymphadenopathy. Abdominal Wall and Mesentery: Unremarkable. Vasculature: Mild atherosclerotic changes in abdominal aorta and iliac arteries without aneurysmal di latation. Pelvic Organs: Enlarged prostate gland. Musculoskeletal: No bony lesions or fracture. Lumbar spondylosis. IMPRESSION: No acute abdominal or pelvic findings. Radiation optimization: All CT scans at this facility use at least one of these dose optimization octavio hniques: automated exposure control mA and/or kV adjustment per patient size (includes targeted exam s where dose is matched to clinical indication) or iterative reconstruction.
[2025-01-05 00:37] VITALS: BP 152/79; PULSE 80; RESP 18; O2SAT 99
--- NOTE | 2025-01-05 09:18 | ELECTROCARDIOGRAPH REPORT ---
[facility] Test Date: 2025-01-04 Test Time: 20:44:42 Pat Name: COLBY MOULTON Department: EMERGENCY ROOM Room: Gender: M Continuity Director: : 1940 Requested By: EVELIA PARRA Order Number: [id number] Reading MD: Dr. Jony Moody Measurements Intervals Counselor Rate: 89 P: 4 AR: 236 QRS: 2 QRSD: 86 T: 66 QT: 349 QTc: 425 Interpretive Statements Sinus rhythm Atrial premature complex Prolonged AR interval Abnormal R-wave progression, late transition Electronically Signed On 01-05-2025 12:11:[address] Jony Moody Please click the below link to view image of tracing.
== END 2025-01-05 00:40 | disposition home or self-care (01) ==
LOC: ER 20:10
DX: E86.0 Dehydration (principal); M25.552 Pain in left hip; E11.42 Type 2 diabetes mellitus with diabetic polyneuropathy; I10 Essential (primary) hypertension; I25.10 Atherosclerotic heart disease of native coronary artery without angina pectoris; Z90.89 Acquired absence of other organs; Z20.822 Contact with and (suspected) exposure to COVID-19
CPT/HCPCS: 36415; 74176; 80053; 81001; 82948; 83690; 85025; 87811; 93005; 96360; 99284; J7030

== ENCOUNTER 2025-06-12 15:59 | Emergency (ER) | payer MEDICARE, OTHER ==
[~2025-06-12] VITALS: Ht 177.8 cm; Wt 102.3 kg
[2025-06-12 16:11] VITALS: TEMP 97.9
--- NOTE | 2025-06-12 16:43 | Physician Documentation ---
History of Present Illness ~ Chief Complaint: Toe pain Stated Complaint: R FOOT PAIN Time Seen by MD: 16:24 Primary Medical Doctor: meryl HPI 84-year-old male presents to the ED for complaint of right toe pain which has worsened over the last month. Patient is a known diabetic with an A1c over eight. States he takes insulin regularly. Complains that the pain is burning and sharp in nature. 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 Primarily on the right lower extremity but is developing on the left foot as well Tetanus witin 5 years: No Medication Reconciliation Allergies: Coded Allergies: No Known Allergies (Unverified , 11/08/22) Scheduled Amlodipine Besylate (Amlodipine Besylate), 1 TAB PO DAILY, (Reported) Atorvastatin Calcium (Atorvastatin Calcium), 1 TAB PO DAILY, (Reported) Empagliflozin/Metformin HCl (Synjardy 12.5-1,000 mg Tablet), 1 TAB PO DAILY, (Reported) Fenofibrate Nanocrystallized (Fenofibrate), 1 TAB PO DAILY, (Reported) Gabapentin (Gabapentin), 1 CAP PO BID, (Reported) Gabapentin (Gabapentin), 1 TAB PO TID Gemfibrozil (Gemfibrozil), 600 MG PO BID, (Reported) Gemfibrozil (Lopid), 1 TAB PO Q12H, (Reported) Insulin Glargine,Hum.rec.anlog* (Lantus*), 44 UNITS SQ HS, (Reported) Levothyroxine Sodium (Levothyroxine Sodium), 1 TAB PO DAILY, (Reported) Lisinopril* (Lisinopril*), 30 MG PO DAILY, (Reported) Oxybutynin Chloride (Oxybutynin Chloride), 1 TAB PO Q12H Phenazopyridine HCl (Pyridium), 1 TAB PO Q8H Tamsulosin Hcl* (Flomax*), 0.4 MG PO DAILY, (Reported) Past Medical History Past Medical History: Peripheral Neuropathy, Coronary Artery Disease, Hypertension, BPH, UTI, Diabetes Past Surgical History: orthopedic surgeries, tonsillectomy Alcohol Use: Other Drug Use: none Lives with: Family Lives In: Home Occupation: retired Review of Systems All Other Systems at this time: Reviewed and Negative ROS As stated above in the HPI, otherwise all systems are reviewed and negative. Physical Exam Vital Signs: Temperature: 97.9, Heart Rate: 67, Respiratory Rate: 17, BP: 157/73, Pulse Oximetry: 100, Weight: 102.270 Oxygen Flow Rate: 0 Physical Exam General: Alert, no apparent distress. HEENT: PERRL, EOMI, no injection, moist mucous membranes. Extremities: Normal range of motion, right great to toe is reddish purple as is the 2nd and 3rd toes notable erythema in the surrounding tissue no fluctuance no masses. , warm to touch Neurologic: Oriented x4. Psychiatric: Normal mood and affect. Skin: Normal color, warm and dry. No edema, no ecchymosis. Progress Results/Orders Results/Orders Orders - MARCUS DA SILVA MANAGER HRIS Monitor (06/12/25 16:43) Saline Lock (06/12/25 16:43) Oxygen (06/12/25 16:43) Vl Venous (06/12/25 16:46) Completed Orders - MARCUS DA SILVA MANAGER HRIS Cbc/Diff (06/12/25 16:43) BMP (06/12/25 16:43) PBNP (06/12/25 16:43) Hs Troponin I W Calculations (06/12/25 16:43) Normal Saline 1000ml (0.9% Sodium Chlori (06/12/25 17:45) Medications Received in ER Medications (Trade) Dose Ordered Sig/Andressa Route PRN Reason Start Time Stop Time Status Last Admin Dose Admin (0.9% sodium chloride (NS) 1000ml IV soln) 1,000 ml ONCE ONCE IVB 06/12/25 17:45 06/12/25 17:46 DC 06/12/25 17:59 1,000 ML Vital Signs 06/12/25 06/12/25 06/12/25 16:11 16:56 17:38 Temp 97.9 Pulse 67 63 Resp 17 18 12 B/P (MAP) 157/73 176/72 (106) Pulse Ox 100 98 O2 Flow Rate 0 Laboratory Tests Test 06/12/25 16:54 White Blood Count 6.0 Red Blood Count 3.50 L Hemoglobin 11.4 L Hematocrit 33.6 L Mean Corpuscular Volume 95.8 Mean Corpuscular Hemoglobin 32.6 H Mean Corpuscular Hemoglobin Concent 34.0 Red Cell Distribution Width 14.0 Platelet Count 269 Mean Platelet Volume 8.2 Neutrophils (%) (Auto) 67.4 Lymphocytes (%) (Auto) 20.5 L Monocytes (%) (Auto) 11.2 Eosinophils (%) (Auto) 0.5 Basophils (%) (Auto) 0.4 Neutrophils # (Auto) 4.1 Lymphocytes # (Auto) 1.2 Monocytes # (Auto) 0.7 Eosinophils # (Auto) 0.0 Basophils # (Auto) 0.0 CBC Comment Sodium Level 142 Potassium Level 5.2 H Chloride Level 107 Carbon Dioxide Level 25.9 Anion Gap 9 Blood Urea Nitrogen 28 H Creatinine 1.61 H Estimated GFR/1.73 m2 41 BUN/Creatinine Ratio 17.4 Glucose Level 329 H Calcium Level 9.1 Troponin I High Sensitivity 9 Pro-B-Type Natriuretic Peptide 244 Albumin 3.8 Chemistry Comments Medical Decision Making Additional information obtaine: N/A Findings Initially ordered a vascular ultrasound for this patient to confirm my suspicion of venous insufficiency secondary to diabetic neuropathy and uncontrolled diabetes. He is concerned for this patient is that he is on insulin and not achieving inappropriate glycemic index on average. I am going to recommend that he follows up in the outpatient setting and seek out further medication administration other than insulin. Discussed my findings with the patient and his daughter they both are verbally agreed with the plan of care Vascular ultrasound indicated that they only do insufficiency ultrasounds in the outpatient setting because it is not considered a a medical emergency The patient a fluid bolus and I gave him extensive discharge instructions. offered hospital admission however patient declined stated that he wanted to be managed in the outpatient setting. General Diff Dx:Considerations: Unlikely: Abrasion, Contusion, Fracture, Hematoma, Laceration, Malunion, Neurovascular injury, Open fracture, Sprain, Ulcer, Other Knee Diff Dx:Considerations: Unlikely: Abrasion, Arthritis, Contusion, DJD, Fracture-femur, Fracture-fibula, Fracture-patella, Fracture-tibia, Gout, Hematoma, Laceration, Meniscus injury, Neurovascular injury, Open fracture, Rheumatoid arthritis, Septic, Sprain, Sprain-MCL, Sprain-LCL, Sprain-ACL, Sprain-PCL, Other Ankle Diff Dx:Considerations: Include: Abrasion, Arthritis, Contusion, DJD, Fracture-metatarsal, Fracture-fibula, Fracture-tarsal, Fracture-tibia, Gout, Hematoma, Laceration, Malunion, Neurovascular injury, Nonunion, Open fracture, Osteomyelitis, Rheumatoid arthritis, Sprain, Septic, Ulcer, Other Foot Diff Dx:Considerations: Include: Abrasion, Arthritis, Cellulitis, Contusion, Dislocation, DJD, Fracture-metatarsal, Fracture-phalynx, Fracture- tarsal, Gout, Hematoma, Ingrown toenail, Laceration, Malunion, Neurovascular injury, Open fracture, Paronychia, Puncture, Rheumatoid, Sprain, Septic, Subungual hematoma, Ulcer, Other Toe Diff Dx:Considerations: Unlikely: Abrasion, Cellulitis, Contusion, Dislocation, Felon, Fracture, Hematoma, Laceration, Neurovascular injury, Open fracture, Paronychia, Subungual hematoma, Other Departure Disposition: HOME / SELF CARE / HOMELESS Impression: Primary Impression: Uncontrolled diabetes mellitus Additional Impression: Diabetic neuropathy Condition: Improved Discharge Instructions: Diabetes Mellitus and Foot Care Additional Instructions: As I discussed with the you I think it is very important to obtain the appropriate medications for better glucose management in order to reduce your A1c and your suspected diabetic neuropathy / venous insufficiency. Recommend the combination of being placed on SGLT2 drugs with a GLP 1 drug combined . The goal is to get off insulin completely and maintain a better glycemic index Referrals: NO PRIMARY CARE PROVIDER (PCP) Prescriptions Gabapentin (Gabapentin) 600 Mg Tablet 1 TAB PO TID for 30 Days, #90 TAB 0 Refills Prov: MARCUS DA SILVA NP 06/12/25 Education Educated: Patient Educated regarding: diagnosis Signature Scribe Signature: b Attestation: Scribed for Marcus Da Silva Np by Marcus Mark NP . 06/12/25 16:42 MARCUS DA SILVA NP Jun 12, 2025 16:43
[2025-06-12 17:02] LABS: MEAN PLATELET VOLUME 8.2 FL (7.4-10.4); RED CELL DISTRIBUTION WIDTH 14.0 % (11.5-14.5)
[2025-06-12 17:25] LABS: CREATININE 1.61 MG/DL (0.60-1.10); PRO BRAIN NATRIURETIC PEPTIDE 244 PG/ML (0-450); TOTAL CARBON DIOXIDE 25.9 MMOL/L (24-32); eCRCL 36 ML/MIN; eGFR 41 ML/MIN
[2025-06-12] MEDS: normal saline 1000ML IV soln IVB ONE (17:59)
[2025-06-12] MEDS ORDERED: GABA-1405 PO (18:06)
[2025-06-12 19:09] VITALS: BP 147/59; PULSE 75; RESP 16; O2SAT 98
== END 2025-06-12 19:10 | disposition home or self-care (01) ==
LOC: ER 16:00
DX: E11.42 Type 2 diabetes mellitus with diabetic polyneuropathy (principal); E11.65 Type 2 diabetes mellitus with hyperglycemia; I10 Essential (primary) hypertension; I25.10 Atherosclerotic heart disease of native coronary artery without angina pectoris; Z90.89 Acquired absence of other organs; Z87.440 Personal history of urinary (tract) infections; Z79.899 Other long term (current) drug therapy; Z98.890 Other specified postprocedural states
CPT/HCPCS: 36415; 80048; 83880; 84484; 85025; 99283; J7030

== ENCOUNTER 2025-06-20 15:03 | Inpatient (IN) | payer MEDICARE, OTHER ==
[~2025-06-20] VITALS: Ht 177.8 cm; Wt 99.1 kg
[~2025-06-20 15:03] MED LIST changes: +GABA-1405 PO
[2025-06-20 16:15] LABS: MEAN PLATELET VOLUME 9.0 FL (7.4-10.4); RED CELL DISTRIBUTION WIDTH 13.9 % (11.5-14.5)
[2025-06-20 16:28] LABS: CREATININE 1.42 MG/DL (0.60-1.10); TOTAL CARBON DIOXIDE 26.4 MMOL/L (24-32); eCRCL 41 ML/MIN; eGFR 48 ML/MIN
[2025-06-20] MEDS ORDERED: iohexol 350 MG/ML 50ML vial IV ONE (16:36)
--- NOTE | 2025-06-20 18:10 | RADIOLOGY REPORT ---
EXAM: CT CTA LOWER EXTREMITY RT HISTORY: Pain, discoloration, swelling. COMPARISON: CT CT ABDOMEN PELVIS on DOS: 01/04/25 TECHNIQUE: CT angiogram of the pelvis with right lower extremity runoff. CT scans at this facility use dose modulation, iterative reconstruction, and/or weight based dosing when appropriate to reduce radiation dose to as low as reasonably achievable. 100 mL of low osmolar contrast was administered without adverse effect. 3-D postprocessing was performed on a separate workstation under radiologist supervision. MIPs were created. VASCULAR FINDINGS: Normal opacification of the infrarenal abdominal aorta, iliac arteries, superficial femoral artery. Mixed atherosclerotic plaque throughout the popliteal and femoral artery. Opacification begins to decline / decrease of the level of the tibioperoneal trunk with subsequent poor distal opacification with concern for occlusion of the level of the proximal to mid calf of the posterior tibial, peroneal, anterior tibial arteries. Lack of opacification of the plantar and dorsalis pedis arteries of the right lower extremity however may be limited secondary to contrast timing and slow flow. Extensive calcification along the posterior tibial artery extending into the plantar arteries. Poor left lower extremity 3-vessel runoff with poor distal opacification of the posterior tibial tendon medial plantar arteries. Opacification of the left dorsalis pedis artery. NON-VASCULAR FINDINGS: Benign-appearing cysts of the left inferior kidney. At least moderate prostatomegaly. Degenerative change of the knees. No abnormal drainable fluid collection. Degenerative change of the metatarsophalangeal joints. IMPRESSION: 1. Opacification begins to decline / decrease of the level of the tibioperoneal trunk with subsequent poor distal opacification with concern for occlusion of the level of the proximal to mid calf of the posterior tibial, peroneal, anterior tibial arteries. 2. Lack of opacification of the plantar and dorsalis pedis arteries of the right lower extremity however may be limited secondary to contrast timing and slow flow.
[2025-06-20] MEDS ORDERED: heparin 10,000 units/1 ML INJ IV ONE (20:40)
[2025-06-20] MEDS ORDERED: heparin 10,000 units/1 ML INJ IV PRN (20:40)
--- NOTE | 2025-06-20 20:41 | VASCULAR REPORT ---
EXAM: [facility] EMILIO INDICATION: Pain, distinct color big toe TECHNIQUE: Grayscale, pulsed Doppler, and color Doppler interrogation of the bilateral lower extremity system was performed from the common femoral arteries to the foot. EMILIO then performed per standard protocol. COMPARISON: None available at the time of dictation. FINDINGS: RIGHT SIDE EMILIO: Segmental pressure of the brachial artery is not taken Segmental pressure of the posterior tibial artery is greater than 255 mmHg. Ankle-brachial index at the anterior tibial artery is 54. Ankle-brachial index at the posterior tibial artery is noncompressible therefore not calculated LEFT SIDE EMILIO: Segmental pressure of the brachial artery is 122 mmHg. Segmental pressure of the anterior tibial artery is 152 mmHg. Segmental pressure of the posterior tibial artery is 200 mmHg. Ankle-brachial index at the posterior tibial artery is 1.64 LAB STANDARDS FOR ANKLE-BRACHIAL INDEX: Normal: 0.95- 1.00 Abnormal: 0.75-0.95 Multilevel disease: 0.30- 0.75 Severe: Less than 0.3 LAB STANDARDS FOR TOE-BRACHIAL INDEX: Normal: Greater than 0.8 Borderline: 0.51-0.79 Abnormal: 0.20-0.50 Severe: Less than 0.2 IMPRESSION: 1. Significant abnormal noncompressibility compatible with calcification bilateral lower extremity arteries
[2025-06-20 20:58] LABS: MEAN PLATELET VOLUME 8.8 FL (7.4-10.4); RED CELL DISTRIBUTION WIDTH 14.0 % (11.5-14.5)
[2025-06-20 21:15] LABS: APTT 24 SECONDS (22-32); INR 1.1 INR
[2025-06-20] MEDS: heparin 10,000 units/1 ML INJ IV ONE (21:18)
--- NOTE | 2025-06-20 21:18 | Physician Documentation ---
History of Present Illness ~ Chief Complaint: Foot pain Stated Complaint: FOOT PAIN Time Seen by MD: 15:35 Primary Medical Doctor: meryl Mode of Arrival: POV, Ambulatory HPI The patient is a 84-year-old male presents with progressive discoloration and significant pain at the distal right great toe, ongoing for approximately four months. Pain is severe, worsens with pressure, at night, and on examination. No current use of anticoagulants. Notable history of uncontrolled diabetes, managed with PCP. Tetanus witin 5 years: No Medication Reconciliation Allergies: Coded Allergies: No Known Allergies (Unverified , 11/08/22) Scheduled Amlodipine Besylate (Amlodipine Besylate), 1 TAB PO DAILY, (Reported) Atorvastatin Calcium (Atorvastatin Calcium), 1 TAB PO DAILY, (Reported) Empagliflozin/Metformin HCl (Synjardy 12.5-1,000 mg Tablet), 1 TAB PO DAILY, (Reported) Fenofibrate Nanocrystallized (Fenofibrate), 1 TAB PO DAILY, (Reported) Gabapentin (Gabapentin), 1 CAP PO BID, (Reported) Gabapentin (Gabapentin), 1 TAB PO TID Gemfibrozil (Gemfibrozil), 600 MG PO BID, (Reported) Gemfibrozil (Lopid), 1 TAB PO Q12H, (Reported) Insulin Glargine,Hum.rec.anlog* (Lantus*), 44 UNITS SQ HS, (Reported) Levothyroxine Sodium (Levothyroxine Sodium), 1 TAB PO DAILY, (Reported) Lisinopril* (Lisinopril*), 30 MG PO DAILY, (Reported) Oxybutynin Chloride (Oxybutynin Chloride), 1 TAB PO Q12H Phenazopyridine HCl (Pyridium), 1 TAB PO Q8H Tamsulosin Hcl* (Flomax*), 0.4 MG PO DAILY, (Reported) Past Medical History Past Medical History: Peripheral Neuropathy, Coronary Artery Disease, Hypertension, BPH, UTI, Diabetes Past Surgical History: orthopedic surgeries, tonsillectomy Smoking Status: Never smoker Alcohol Use: Other Drug Use: none Lives with: Family Lives In: Home Occupation: retired Physical Exam Vital Signs: Temperature: 97.7, Source: Oral, Heart Rate: 64, Respiratory Rate: 16, BP: 155/84, Pulse Oximetry: 98, Weight: 99.090 Oxygen Flow Rate: 0 Progress Results/Orders Results/Orders Orders - NORI GUERRERO SURGEON'S ASSISTANT Vl Alicja (06/20/25 15:45) Cta Lower Extremity Rt (06/20/25 15:45) Completed Orders - NORI GUERRERO SURGEON'S ASSISTANT Cbc/Diff (06/20/25 15:45) CMP (06/20/25 15:45) Vl Alicja (06/20/25 15:45) Cta Lower Extremity Rt (06/20/25 15:45) Iohexol 350mg/Ml 100ml (Omnipaque 350mg/ (06/20/25 16:35) Iohexol 350mg/Ml 50ml Inj (Omnipaque 350 (06/20/25 16:36) Vital Signs 06/20/25 06/20/25 06/20/25 06/20/25 15:09 15:28 16:00 17:55 Temp 97.7 97.7 Pulse 65 67 71 Resp 16 12 16 16 B/P (MAP) 151/66 141/67 (91) 150/68 (95) Pulse Ox 95 96 98 O2 Flow Rate 0 0 0 06/20/25 18:41 Temp 97.7 Pulse 64 Resp 16 B/P (MAP) 155/84 (107) Pulse Ox 98 O2 Flow Rate 0 Laboratory Tests Test 06/20/25 15:57 06/20/25 20:51 White Blood Count 6.7 7.1 Red Blood Count 3.47 L 3.75 L Hemoglobin 11.5 L 12.2 L Hematocrit 33.1 L 36.3 L Mean Corpuscular Volume 95.6 96.9 Mean Corpuscular Hemoglobin 33.1 H 32.6 H Mean Corpuscular Hemoglobin Concent 34.6 33.7 Red Cell Distribution Width 13.9 14.0 Platelet Count 259 279 Mean Platelet Volume 9.0 8.8 Neutrophils (%) (Auto) 70.0 67.1 Lymphocytes (%) (Auto) 21.6 23.3 Monocytes (%) (Auto) 7.3 8.3 Eosinophils (%) (Auto) 0.8 0.8 Basophils (%) (Auto) 0.3 0.5 Neutrophils # (Auto) 4.7 4.8 Lymphocytes # (Auto) 1.5 1.7 Monocytes # (Auto) 0.5 0.6 Eosinophils # (Auto) 0.1 0.1 Basophils # (Auto) 0.0 0.0 CBC Comment Sodium Level 138 Potassium Level 5.2 H Chloride Level 105 Carbon Dioxide Level 26.4 Anion Gap 7 L Blood Urea Nitrogen 30 H Creatinine 1.42 H Estimated GFR/1.73 m2 48 BUN/Creatinine Ratio 21.1 H Glucose Level 310 H Calcium Level 9.4 Total Bilirubin 0.3 Aspartate Amino Transf (AST/SGOT) 18 Alanine Aminotransferase (ALT/SGPT) 27 Alkaline Phosphatase 52 Total Protein 7.4 Albumin 4.0 Globulin 3.4 Albumin/Globulin Ratio 1.2 Chemistry Comments Coagulation Comments Medical Decision Making Additional information obtaine: other Findings Case Presentation: 84-year-old male presents with progressive discoloration and significant pain at the distal right great toe, ongoing for approximately four months. Pain is severe, worsens with pressure, at night, and on examination. No current use of anticoagulants. Notable history of uncontrolled diabetes, managed with PCP. Physical Exam and Diagnostics: Exam reveals distal right great toe with marked discoloration and tenderness. CTA demonstrates reduced perfusion in the right lower extremity. ABIs are noncompressible, limiting utility for further vascular assessment. Assessment: Findings are consistent with chronic critical limb ischemia with acute on chronic worsening, likely secondary to arterial occlusion. The patients advanced age and uncontrolled diabetes increase risk for poor wound healing and adverse outcomes. Differential Diagnosis: Arterial occlusion (most likely) Severe peripheral arterial disease Diabetic microvascular disease Infection (less likely, no systemic signs) Plan: Admit for close monitoring and vascular management. Initiate intravenous heparin for suspected arterial occlusion. Consult vascular surgery for definitive management and possible intervention in the morning. Continue glycemic control measures; coordinate with PCP as needed. Monitor for signs of infection, tissue loss, or worsening ischemia. Multidisciplinary approach involving emergency medicine, vascular surgery, and consideration of geriatric input for frailty and comorbidity management. Shared Decision: Admission and initiation of anticoagulation agreed upon by emergency medicine and vascular surgery teams, with input from geriatric medicine regarding frailty and risk stratification. Discussed this patient with my attending Dr. Richey and with the vascular surgeon on-call Dr. Boyd. I have discussed this patient with the hospitalist and they have abrasions graciously accepted this patient for inpatient admission. The vascular team we will follow up with his patient in the morning. Foot Diff Dx:Considerations: Include: Abrasion, Arthritis, Cellulitis, Contusion, Dislocation, DJD, Fracture-metatarsal, Fracture-phalynx, Fracture- tarsal, Gout, Hematoma, Ingrown toenail, Laceration, Malunion, Neurovascular injury, Open fracture, Paronychia, Puncture, Rheumatoid, Sprain, Septic, Subungual hematoma, Ulcer, Other Departure Disposition: ADMITTED INPATIENT Impression: Primary Impression: Foot pain Additional Impression: Arterial occlusion Condition: Stable Additional Instructions: This patient the plan to admit and to have the vascular team follow up with him in the morning. Patient is amenable to the plan at this time. Referrals: NO PRIMARY CARE PROVIDER (PCP) Education Educated: Patient Educated regarding: diagnosis, treatment, need for follow up Signature Scribe Signature: A Attestation: Scribed for Nori Guerrero by DAVON Kilgore . 06/20/25 21:20 NORI GUERRERO Jun 20, 2025 21:18
[2025-06-20] MEDS: heparin 25,000 UNIT/250ml bag 250 ML IV PRN (21:19)
[2025-06-20] MEDS: MESSAGE TO NURSING IV ONE (21:24)
[2025-06-20] MEDS: HYDROcodone/acetaminophen 5mg/325mg tablet PO ONE (21:34)
[2025-06-20] MEDS ORDERED: potassium Cl 20 mEq SR tablet PO PRN ×2 (22:40)
[2025-06-20] MEDS ORDERED: magnesium Cl slow-release 64mg tablet PO PRN (22:40)
[2025-06-20] MEDS ORDERED: magnesium sulf-water 2g/50mL 50 ML IV PRN (22:40)
[2025-06-20] MEDS ORDERED: magnesium hydroxide 30ml (MOM) UD suspension PO PRN (22:40)
[2025-06-20] MEDS ORDERED: magnesium sulf-water 4G/100mL 100 ML IV PRN (22:40)
[2025-06-20] MEDS ORDERED: potassium Cl 40MEQ/1/2NS 520ml 520 ML IV PRN (22:40)
[2025-06-20] MEDS ORDERED: mag hydrox/Alum hydrox/simeth 30ml oral suspension PO PRN (22:40)
[2025-06-20] MEDS ORDERED: ondansetron/PF 4mg/2ml inj IV PRN (22:40)
[2025-06-20] MEDS: normal saline 1000ml 1,000 ML IV SCH (23:23)
[2025-06-20] MEDS: CefTRIAXone/D5W-Rocephin 1gm 50 ML IV SCH (23:23)
[2025-06-21] VITALS (8 sets, daily range): BP systolic 122–169; BP diastolic 57–74; PULSE 54–98; RESP 14–20; TEMP 97.7–98.3; O2SAT 95–98
[2025-06-21] MEDS ORDERED: DEXTROSE 15 GM of carb/4 tabs (each vial/BOTTLE has 4 tablets) PO PRN ×4 (00:20→08:55)
[2025-06-21] MEDS ORDERED: glucagon, human recombinant 1mg kit SUBCUT PRN ×2 (00:20→08:55)
[2025-06-21] MEDS ORDERED: dextrose 50%-water 50ml dispensing syringe IV PRN ×4 (00:20→08:55)
[2025-06-21] MEDS: insulin glargine (Lantus) pen - multi-dose SQ SCH ×2 (01:07→21:29)
[2025-06-21] MEDS: insulin glargine (Lantus) pen - multi-dose SQ ONE (01:08)
[2025-06-21] MEDS: sodium polystyrene sulfonate 15gm/60ml oral suspension PO ONE (01:26)
--- NOTE | 2025-06-21 01:31 | HISTORY AND PHYSICAL-Residence ---
History & Physical Providers to CC Resident Creating Document: MAKI THOMPSON, AMPARO ~ History of Present Illness Primary Medical Doctor: [facility] [place] Reason for Admit\Complaint: Acute PAD History of Present Illness This is an 84-year-old male with a history of type 2 diabetes mellitus, CAD s/p stent about five years ago, carotid stenosis s/p left carotid endarterectomy 10 years ago, hypertension, hyperlipidemia, hypothyroidism, neuropathy came to the ER with increased pain, discoloration, redness of right big toe. The patient came along with the his daughter who assisted in history taking. About four months ago the patient noticed some pain in his stool, about two months ago he noticed discoloration. He initially went to his primary care and was referred to Dr. Noguera but did not get a call back. With worsening pain and discoloration he went [place] [facility] was told to go to ER for acute PAD management. The patient expresses stabbing kind of pain, redness in his right big toe and 2nd toe, also has mild pain in his left toe. Denies any discharge from the site of the wound. Denies any fever. His bonding and composite fabricator is Dr. Mcclendon Allergies: Coded Allergies: No Known Allergies (Unverified , 11/08/22) Home Medications Home Medications Active Gabapentin 600 Mg Tablet 1 Tab PO TID 30 Days Oxybutynin Chloride 5 Mg Tablet 1 Tab PO Q12H Pyridium (Phenazopyridine HCl) 100 Mg Tablet 1 Tab PO Q8H 2 Days Reported Lopid (Gemfibrozil) 600 Mg Tablet 1 Tab PO Q12H Lantus* (Insulin Glargine) 100 Unit/1 Ml Vial 44 Units SQ HS Fenofibrate 145 Mg Tablet 1 Tab PO DAILY Amlodipine Besylate 5 Mg Tablet 1 Tab PO DAILY Atorvastatin Calcium 20 Mg Tablet 1 Tab PO DAILY Flomax* (Tamsulosin HCl) 0.4 Mg Cap.sr.24h 0.4 Mg PO DAILY Levothyroxine Sodium 75 Mcg Tablet 1 Tab PO DAILY Synjardy 12.5-1,000 mg Tablet (Empagliflozin/Metformin HCl) 1 Each Tablet 1 Tab PO DAILY Gabapentin 300 Mg Capsule 1 Cap PO BID Gemfibrozil 600 Mg Tablet 600 Mg PO BID Lisinopril* (Lisinopril) 30 Mg Tablet 30 Mg PO DAILY Past Medical History Past Medical History CAD s/p stent about five years ago Carotid artery stenosis s/p left carotid endarterectomy Hypertension Hyperlipidemia BPH Neuropathy Past Surgical History Surgical History Comment Stent Placement left carotid endarterectomy Past Social History Social History Comment Quit smoking more than 40 years ago Occasional alcohol use 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 Lives alone, has a daughter who lives close by Alcohol Use: Other Drug Use: None Lives with: Family Lives In: Home Occupation: retired ROS Constitutional: Denies: no symptoms reported, see HPI, chills, diaphoresis, fever, malaise, weakness, other Eyes: Denies: no symptoms reported, see HPI, pain, discharge, blurred vision, double vision, itching, photophobia, redness, tearing, other ENT: Denies: no symptoms reported, see HPI, ear pain, ear bleeding, ear discharge, hearing loss, ear ringing, nose pain, nose bleeding, nose congestion, nose discharge, throat pain, throat swelling, voice change, mouth pain, mouth bleeding, mouth swelling, other Respiratory: Denies: no symptoms reported, see HPI, cough, orthopnea, shortness of breath, SOB with exertion, SOB at rest, stridor, wheezing, hemoptysis, pain with breathing, other Cardiovascular: Denies: no symptoms reported, see HPI, chest pain, left arm pain, diaphoresis, lightheadedness, syncope, edema, palpitations, irregular heart rate, other Gastrointestinal: Denies: no symptoms reported, see HPI, abdomen distended, abdominal pain, nausea, vomiting, diarrhea, constipated, melena, hematemesis, hematochezia, rectal bleeding, rectal pain, dysphagia, poor appetite, poor fluid intake, other Genitourinary: Denies: no symptoms reported, see HPI, burning, discharge, dysuria, frequency, flank pain, hematuria, incontinence, pain, decreased urine output, urgency, other Male Genitalia: Denies: no symptoms reported, see HPI, penile discharge, penile sore, testicular pain, testicular swelling, other Neurological: Denies: no symptoms reported, see HPI, speech problem, headache, dizziness, fainting, tingling, left sided numbness, right sided numbness, left sided weakness, right sided weakness, problems walking, unable to move lower ext, unable to move upper ext, petit mal seizures, tonic-clonic seizures, cognitive dysfunction, other Musculoskeletal: Reports: pain, swelling Integumentary: Denies: no symptoms reported, see HPI, rash, itching, lesions, lumps, bruise(s), wound(s), laceration(s), dryness, change in color, other Exam Vitals: Vital Signs Date Time Temp Pulse Resp B/P (MAP) Pulse Ox O2 Delivery O2 Flow Rate FiO2 06/21/25 01:05 71 06/20/25 23:02 97.7 16 123/65 (84) 97 0 General: General awake, alert, manic HEENT: Conjunctive are pink, sclerae clear, no icterus, Neck: Supple, no JVD, Chest: Bilateral breath sounds are clear Cardiovascular: S1-S2 regular sinus rhythm and, regular rate, no gallops, no rubs, no murmur Abdomen: Soft, no tenderness, bowel sounds heard, no guarding, no rigidity. Extremities: Right big toe, mildly swollen, rednes, tenderness. Decreased pulsations in bilateral foot. Central Nervous System: No focal neurological deficits, Diagnostic Data Last Recorded Lab Results: 06/21/25 0320 06/21/25 0320 Diagnostic Data: Laboratory Tests Test 06/20/25 20:51 Prothrombin Time 10.9 SECONDS (9.0-12.0) INR International Normalized Ratio 1.1 INR Activated Partial Thromboplast Time 24 SECONDS (22-32) Coagulation Comments Advance Care Planning Advanced Care plannin - 30 Minutes (I spent 17 minutes in discussing various resuscitative measures, the patient chose to be full code) Additional Plan Assessment This is an 84-year-old male with a history of type 2 diabetes mellitus, CAD s/p stent about five years ago, carotid stenosis s/p left carotid endarterectomy 10 years ago, hypertension, hyperlipidemia, hypothyroidism, neuropathy came to the ER with increased pain, discoloration, redness of right big toe. The patient is being admitted for acute PAD Plan Acute on chronic PAD Decreased pulsations in right> left foot Multiple risk factors-CAD, DM 2 CTA showed concern of occlusion at the level of proximal to mid cough of posterior tibial, peroneal, anterior tibial arteries, lack of opacification of plantar and dorsalis pedis arteries. Arterial ultrasound showed significant abnormal noncompressibility compatible with calcification Started on heparin drip. Dr. Vidal was consulted Patient is on Eliquis at home, recently started by Dr. Mcclendon, patient is not sure why Placed the patient on NPO for any possible intervention Possible cellulitis The toes appear red and tender, Normal WBC count Started on IV ceftriaxone and IV fluids LAMIN likely secondary to renal tubular stasis Hyperkalemia Creatinine is 1.42, BUN 30 Baseline creatinine is not known Potassium 5.2 Urine electrolytes ordered Strict I&Os Started on IV fluids One dose of Kayexalate ordered Uncontrolled type 2 diabetes mellitus A1c 8.0 Blood glucose 350 Started on Lantus 20 units, 10 units with meals, medium dose protocol. History of CAD s/p stent Continued patient's home medication atorvastatin 20 mg Hypertension Continued patient's home medication amlodipine 5 mg, lisinopril 30 mg Hypothyroidism Continued patient's home medication levothyroxine 75 mcg. BPH continued patient's home medication tamsulosin. Peripheral neuropathy Continued patient's home medication gabapentin. Prvtahira Thompson M.D PGY2 Date of Service: Jun 21, 2025 Billing Provider: RORY DOLAN MD Addendum Attestation I agree with the residents assessment and plan as below: 84 year old male with HTN and DM admitted with change in color of the LE. Plan: CT surgery consult heparin infusion ceftriaxone for possible cellulitis CCT 57 min using HIPPA compliant A/V technology MAKI THOMPSON, RES Jun 21, 2025 01:31 RORY DOLAN MD Jun 21, 2025 04:54
[2025-06-21] MEDS: normal saline 1000ml 1,000 ML IV SCH (02:07)
[2025-06-21] MEDS: HYDROcodone/acetaminophen 5mg/325mg tablet PO PRN (02:07)
[2025-06-21] MEDS: sodium bicarbonate 1meq/ml inj 150 ML in dextrose 5%-water 1,000 ML IV SCH (03:05)
[2025-06-21 03:33] LABS: MEAN PLATELET VOLUME 9.1 FL (7.4-10.4); RED CELL DISTRIBUTION WIDTH 13.9 % (11.5-14.5)
[2025-06-21 04:01] LABS: CHOL/HDL RATIO 4.0 (0.00-4.99); CREATININE 1.47 MG/DL (0.60-1.10); LDL CHOLESTEROL 91 MG/DL (50-100); TOTAL CARBON DIOXIDE 25.0 MMOL/L (24-32); eCRCL 39 ML/MIN; eGFR 46 ML/MIN
[2025-06-21] MEDS: MESSAGE TO NURSING IV ONE ×3 (04:50→17:25)
[2025-06-21] MEDS: INSULIN LISPRO 100 UNIT/ML INSULN.PEN MULTI-DOSE SQ SCH ×4 (07:19→12:39)
[2025-06-21] MEDS: levoTHYROXINE 75mcg tablet PO SCH (07:52)
[2025-06-21] MEDS: K and/or MAG REPLACEMENT MC SCH (08:00)
[2025-06-21] MEDS: docusate sod 100mg capsule PO SCH (08:01)
--- NOTE | 2025-06-21 08:55 | RADIOLOGY REPORT ---
EXAM: DI CHEST,SINGLE VIEW Indication: pain Technique: Single frontal view of the chest was obtained Comparison: DI CHEST,SINGLE VIEW on DOS: 07/14/23 FINDINGS: Lines and Tubes: None Lungs: No focal consolidation. Pleura: No effusion. No pneumothorax. Cardiomediastinal contours: Unremarkable. Atherosclerotic vascular calcifications of the thoracic aorta are noted. Bones: No acute osseous abnormality. IMPRESSION: No acute cardiopulmonary disease.
[2025-06-21 09:08] LABS: APTT 89 SECONDS (22-32)
[2025-06-21] MEDS: magnesium sulf-water 2g/50mL 50 ML IV ONE (10:37)
[2025-06-21] MEDS ORDERED: INSULIN LISPRO 100 UNIT/ML INSULN.PEN MULTI-DOSE SQ SCH ×2 (12:30→17:30)
[2025-06-21] MEDS ORDERED: phenazopyridine 100mg tablet PO SCH (16:00)
--- NOTE | 2025-06-21 17:23 | CARDIOLOGY REPORT ---
APPROVED REPORT EXAM: Comprehensive 2D, Doppler, and color-flow Echocardiogram. Patient Location: 355B Blood Pressure: 169/74 mmHg Heart Rate: 67 bpm Indications Congestive Heart Failure Coronary Artery Disease HX of Stents Hypertension Diabetes HORTICULTURE SUPERVISOR: BV. Hakan MD Previous ECHO: 10/05/2024, [facility], EF: 65; tr MR/TR/PI; m RVE 2D Dimensions LA Diam 3.5 cm IVSd 0.9 (0.7-1.1cm) LVDd 4.2 cm PWd 0.9 (0.7-1.1cm) IVSs 1.5 (0.8-1.2cm) LVDs 1.9 (2.5-4.0cm) PWs 1.5 (0.8-1.2cm) LVOT Diameter 1.93 (1.8-2.4cm) LVEF(%) 85.2 (>50%) Ao Asc Diam. 3.55 cm IVC 11.05 mm FS (%) 54.0 % SV 68.1 ml CO 4.4 L/min M-Mode Dimensions Left Atrium(MM) 4.08 (2.5-4.0cm) Aortic Root 2.64 (2.2-3.7cm) Aortic Cusp Exc 1.25 (1.5-2.0cm) MV EPSS 0.4 (<0.5cm) Aortic Valve AoV Peak Rex. 173.0 cm/s AoV VTI 39.3 cm AO Peak GR. 12.0 mmHg AO Mean GR. 6 mmHg LVOT VTI 29.28 cm LVOT Peak Rex. 116.7 cm/s MORRIS(VTI)/BSA 2.19 cm2/m2 MORRIS (VTI) 2.19 cm2 AV DI 0.74 % Mitral Valve MV E Velocity 69.4 cm/s MV Peak Gr. 4 mmHg MV DECEL TIME 140 ms MV A Velocity 83.3 cm/s MV PHT 60 ms E/A Ratio 0.8 MVA (PHT) 3.67 cm2 MV VMax 99.4 cm/s TDI Lateral E' P. V 9.74 cm/s E/Lateral E' 7.1 Pulmonary Valve PAEDP 11.58 mmHg Tricuspid Valve TR P. Velocity 242 cm/s RAP ESTIMATE 10 mmHg TR Peak Gr. 23 mmHg RVSP 33 mmHg LEFT VENTRICLE Normal LV size and wall thickness. Overall systolic function is hyperdynamic. Overall LVEF is 75%. RIGHT VENTRICLE Right ventricle is mildly dilated with adequate function. ATRIA Left atrium is mildly dilated. AORTIC VALVE Trileaflet AV appears milldy sclerotic without stenosis. Trivial insufficiency. MITRAL VALVE Mitral valve leaflets are mildly thickened with mild annular calcification. No stenosis. Trace regurgitation. TRICUSPID VALVE The tricuspid valve is normal in structure with trace regurgitation. PULMONIC VALVE The pulmonary valve is normal in structure with trace insufficiency. GREAT VESSELS The aortic root is normal in size. The ascending aorta is normal in size. The IVC is normal in size and collapses >50% with inspiration. PERICARDIUM Normal pericardium. No effusion. Other Information Study Quality: Poor Conclusion Overall LVEF is 75%. Normal LV size and wall thickness. Overall systolic function is hyperdynamic. Right ventricle is mildly dilated with adequate function. Trileaflet AV appears milldy sclerotic without stenosis. Trivial insufficiency. Mitral valve leaflets are mildly thickened with mild annular calcification. No stenosis. Trace regurgitation. The tricuspid valve is normal in structure with trace regurgitation. The pulmonary valve is normal in structure with trace insufficiency. Normal pericardium. No effusion.
--- NOTE | 2025-06-21 18:24 | PROGRESS NOTE- Residence ---
Progress Note - Resident Providers to CC Resident Creating Document: KYLIE LAWSON RES ~ Antibiotic Timeout Antibiotic Ordered?: Yes Subjective Pt was seen with his daughter at the bedside in [facility] unit this am. Pt was explained that he might need the procedure which would be either IR or Surgical for his mechanical obstruction of his right leg peripheral arteries. pt reported for noticing the pain and redness with the discoloration of the right leg. IR team Dr Badillo was informed for the consultation for the possible stent placement. Objective Vital Signs Date Time Temp Pulse Resp B/P (MAP) Pulse Ox O2 Delivery O2 Flow Rate FiO2 06/21/25 14:50 Room Air 0.0 06/21/25 10:00 98.3 98 18 130/74 (92) 95 Result Diagram: 06/21/25 0320 06/21/25 0320 Vitals were stable at the moment with a temp 98.3 F, [place] 98/minute, RR 18/minute, BP 130/74 mm Hg, pulse oximetry 95% on room air. On examination, General: Well alert, well oriented, not confused, not agitated, not in acute distress, well cooperated during the physical. HEENT: Conjunctive are pink, sclerae clear, no icterus, pupil is equal in both sides, reactive to light, no ear discharge, no pharyngeal erythema or an edema, mouth and lips are moist. Neck: Supple, no JVD, no lymphadenopathy and thyromegaly. Lungs:Equal air entry on both lungs, no additional sounds Heart: S1-S2 regular sinus rhythm and, regular rate, no gallops, no rubs, no murmurs Abdomen: No visible peristalsis, Bowel sounds present on auscultation, soft, nontender, no guarding, no rigidity Extremities: Inflammed swollen, hot on touch redness right big toe with some discoloration were noted over the right distal toes. No obvious deformities, no pitting edema bilaterally, capillary refill are reduced >2 secs, able to wiggle toes both sides, and normal sensation, but peripheral pulsations including dorsalis pedis are absent on the right side and decreased on left side. BOARD CERTIFIED ARTS THERAPIST: No focal neurological deficits, no motor and sensory weakness in all 4 extremities, could move all 4 extremities Musculoskeletal: No joint swelling, deformities, inflammations, and no scoliosis and back tenderness Skin: No active skin lesions and rashes Coagulation Studies Laboratory Tests Test 06/20/25 20:51 06/21/25 08:22 06/21/25 16:09 Prothrombin Time 10.9 SECONDS (9.0-12.0) INR International Normalized Ratio 1.1 INR Activated Partial Thromboplast Time 89 SECONDS (22-32) *H APTT (Heparin Protocol) 93 SECONDS (45-60) *H Coagulation Comments Assessment Assessment An 84-year-old male with a history of type 2 diabetes mellitus on insulin and Jardiance, CAD s/p stent about five years ago, carotid stenosis s/p left carotid endarterectomy 10 years ago, hypertension, hyperlipidemia, hypothyroidism, neuropathy, BPH came to the ER with increased pain, discoloration, redness of right big toe. The patient is being admitted for acute PAD. Plan Plan # Acute on chronic PAD # Deficit peripheral blood flow more in right than left foot -Multiple risk factors-CAD, DM 2 -CTA showed concern of occlusion at the level of proximal to mid cough of posterior tibial, peroneal, anterior tibial arteries, lack of opacification of plantar and dorsalis pedis arteries. -Arterial ultrasound showed significant abnormal noncompressibility compatible with calcification Plan: -Continue IV Heparin -Dr. Vidal recommended to proceed with the intervention through either IR or Cardiology, where Dr Abernathy will be performing the intervention/ angiogram tomorrow. -NPO after midnight -held PO Eliquis as per Dr Mcclendon while pt is on CLOTILDE Heparin # Possible Right leg cellulitis -The toes appear red and tender as in inflamed -Normal WBC count Plan: Continue IV ceftriaxone and IV fluids -control the pain with PO [place] and Gabapentin # LAMIN likely secondary to renal tubular stasis # electrolyte/minerals imbalance-Hyperkalemia, hypomagnesemia # hyperchromic normocytic/dimorphic anemia -trending down creatinine -Baseline creatinine is around 1.4 last 2 years -Chronically low Hb with dimorphic features, Plan: -Potassium is corrected, correct/replace as per protocol -replace magnesium one time IV -Urine electrolytes pending -Strict I&Os -continue on IV fluids -pending B12, retic count, LDH and iron study # Uncontrolled type 2 diabetes mellitus # peripheral neuropathy -A1c 8.0 -Blood glucose 350 on admission -Started on Lantus 20 units, 10 units with meals, medium dose protocol. Plan: Continue lispro 7 units, glargine 20 units at nighttime, hypo/hyperglycemic protocol with a sliding scale. -continue p.o. home medication gabapentin -targeted RBS she will be ranging between 140 and 180s # History of CAD s/p stent -Continued patient's home medication atorvastatin 20 mg # Hypertension # mixed hyperlipidemia -Continued patient's home medication amlodipine 5 mg, lisinopril 30 mg -continue home medication gemfibrozil, fenofibrate with the atorvastatin 20 mg daily # Hypothyroidism -Continued patient's home medication levothyroxine 75 mcg. # BPH -continued patient's home medication tamsulosin, Oxybutynin And phenazopyridine CODE STATUS: Full code DVT prophylaxis: IV heparin Analgesia/sedation: [place] as needed Lines/tubes: PIV GI prophylaxis: None Nutrition: NPO after midnight Prognosis: Guarded Disposition: Continue medical management IV heparin, pain control, diabetes and high blood pressure control, NPO after midnight for tomorrow angiogram, PT eval and DC plan. Resident MD attestation: Patient was seen, examined and discussed with attending MD, Dr. Josh LAWSON MD Internal Medicine Resident, PGY3 [facility] Date of Service: Jun 21, 2025 Billing Provider: ISAAC BOWSER MD Common Visit Codes: [id number] INP/OBS CARE(HIGH) KYLIE LAWSON, AMPARO Jun 21, 2025 18:24 ISAAC BOWSER MD Jun 27, 2025 07:28
--- NOTE | 2025-06-21 20:17 | PROGRESS NOTE ---
Progress Note ID Providers to CC ~ Progress Note Progress Note: Dr. Abernathy to evaluate for angio ARIEL LANDIN MD Jun 21, 2025 20:17
[2025-06-22] VITALS (12 sets, daily range): BP systolic 127–148; BP diastolic 60–78; PULSE 60–73; RESP 17–18; TEMP 97.3–97.9; O2SAT 92–99
[2025-06-22] MEDS: MESSAGE TO NURSING IV ONE ×2 (01:30→09:45)
[2025-06-22 07:35] LABS: ABSOLUTE RETICS # 30700 /CUMM (23000-93000); MEAN PLATELET VOLUME 9.3 FL (7.4-10.4); RED CELL DISTRIBUTION WIDTH 13.7 % (11.5-14.5)
[2025-06-22 07:44] LABS: INR 1.1 INR
[2025-06-22 08:05] LABS: LACTATE DEHYDROGENASE 121.0 U/L (85-227)
[2025-06-22 08:09] LABS: % IRON SATURATION 23 % (11-46)
[2025-06-22 08:15] LABS: CREATININE 1.39 MG/DL (0.60-1.10); TOTAL CARBON DIOXIDE 24.7 MMOL/L (24-32); eCRCL 42 ML/MIN; eGFR 49 ML/MIN
[2025-06-22] MEDS ORDERED: LIDOcaine 1% 30ml preserv. free vial ONE (11:06)
[2025-06-22] MEDS ORDERED: midazolam 1 mg/ML 2ml injection ONE ×2 (11:07→12:14)
[2025-06-22] MEDS ORDERED: fentaNYL/PF 50MCG/1 ML 2ML syringe ONE (11:07)
[2025-06-22] MEDS ORDERED: heparin 1,000unit/ml 10ml vial 10 ML ONE (11:23)
[2025-06-22] MEDS ORDERED: clopidogrel 300mg tablet ONE (12:57)
[2025-06-22] MEDS: normal saline 1000ml 1,000 ML IV SCH (14:11)
--- NOTE | 2025-06-22 16:00 | PROGRESS NOTE- Residence ---
Progress Note - Resident Providers to CC Resident Creating Document: KYLIE LAWSON RES ~ Antibiotic Timeout Antibiotic Ordered?: Yes Subjective Patient will be taken to [facility] for the angiogram by Dr. Abernathy this morning. Patient does not complain about any medical complaints. Patient might be having peripheral artery stent murmur after angiogram assessment or surgical intervention. Pt received the angiogram and was placed one Right SFA Stent by Dr Abernathy without having any complications today 06/22/25. Objective Vital Signs Date Time Temp Pulse Resp B/P (MAP) Pulse Ox O2 Delivery O2 Flow Rate FiO2 06/22/25 10:00 97.6 64 17 127/61 (83) 97 Room Air 06/22/25 08:00 0.0 Result Diagram: 06/22/25 0718 06/22/25 0720 Vitals were stable at the moment with a temp 97.6 F, SD 64/minute, RR 70/minute, BP 127/61 mm Hg, pulse oximetry 97% on room air. On examination, General: Well alert, well oriented, not confused, not agitated, not in acute distress, well cooperated during the physical. HEENT: Conjunctive are pink, sclerae clear, no icterus, pupil is equal in both sides, reactive to light, no ear discharge, no pharyngeal erythema or an edema, mouth and lips are moist. Neck: Supple, no JVD, no lymphadenopathy and thyromegaly. Lungs:Equal air entry on both lungs, no additional sounds Heart: S1-S2 regular sinus rhythm and, regular rate, no gallops, no rubs, no murmurs Abdomen: No visible peristalsis, Bowel sounds present on auscultation, soft, nontender, no guarding, no rigidity Extremities: Inflammed swollen, hot on touch redness right big toe with some discoloration were noted over the right distal toes. No obvious deformities, no pitting edema bilaterally, capillary refill are reduced >2 secs, able to wiggle toes both sides, and normal sensation, but peripheral pulsations including dorsalis pedis are absent on the right side and decreased on left side. 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, no motor and sensory weakness in all 4 extremities, could move all 4 extremities Musculoskeletal: No joint swelling, deformities, inflammations, and no scoliosis and back tenderness Skin: No active skin lesions and rashes Coagulation Studies Laboratory Tests Test 06/21/25 08:22 06/22/25 07:18 Activated Partial Thromboplast Time 89 SECONDS (22-32) *H Prothrombin Time 10.8 SECONDS (9.0-12.0) INR International Normalized Ratio 1.1 INR APTT (Heparin Protocol) 69 SECONDS (45-75) Coagulation Comments Assessment Assessment An 84-year-old male with a history of type 2 diabetes mellitus on insulin and Jardiance, CAD s/p stent about five years ago, carotid stenosis s/p left carotid endarterectomy 10 years ago, hypertension, hyperlipidemia, hypothyroidism, neuropathy, BPH came to the ER with increased pain, discoloration, redness of right big toe. The patient is being admitted for acute PAD. Plan Plan # Acute on chronic PAD # Deficit peripheral blood flow more in right than left foot # S/p Right SFA stent by Dr Abernathy on 06/22/25 -Multiple risk factors-CAD, DM 2 -CTA showed concern of occlusion at the level of proximal to mid cough of posterior tibial, peroneal, anterior tibial arteries, lack of opacification of plantar and dorsalis pedis arteries. -Arterial ultrasound showed significant abnormal noncompressibility compatible with calcification Plan: -disontinue IV Heparin and PO Plavix 600 mg in immediate post procedure as per Dr Abernathy -monitor the bleeding at the puncture site, avoid heavy weight lifting and exaggerated movement -resume heart healthy diet -proceed with the anticoagulation plan as per Cardiology team -continue high-intensity statin along with gemfibrozil and fenofibrate # Possible Right leg cellulitis -The toes appear red and tender as in inflamed -Normal WBC count Plan: Continue IV ceftriaxone and IV fluids day 2 -control the pain with PO [place] and Gabapentin # LAMIN likely secondary to renal tubular stasis # electrolyte/minerals imbalance-Hyperkalemia, hypomagnesemia # hyperchromic normocytic/dimorphic anemia -trending down creatinine -Baseline creatinine is around 1.4 last 2 years -Chronically low Hb with dimorphic features, Plan: -Potassium is corrected, correct/replace as per protocol -replace magnesium one time IV and replace as needed as per protocol -Urine electrolytes pending -Strict I&Os -continue on IV fluids -pending B12, retic count, LDH -normal iron study, started B12 tablets with folic acid # Uncontrolled type 2 diabetes mellitus # peripheral neuropathy -A1c 8.0 -Blood glucose 350 on admission -Started on Lantus 20 units, 10 units with meals, medium dose protocol. Plan: Increase the dosage of lispro 7 to 10 units, glargine 20 to 24 units at nighttime for better blood glucose control, hypo/hyperglycemic protocol with a sliding scale. -continue p.o. home medication gabapentin -targeted RBS she will be ranging between 140 and 180s # History of CAD s/p stent -Continued patient's home medication atorvastatin 20 mg # Hypertension # mixed hyperlipidemia -Continued patient's home medication amlodipine 5 mg, lisinopril 30 mg -continue home medication gemfibrozil, fenofibrate with the atorvastatin 20 mg daily # Hypothyroidism -Continued patient's home medication levothyroxine 75 mcg. # BPH -continued patient's home medication tamsulosin, Oxybutynin And phenazopyridine CODE STATUS: Full code DVT prophylaxis: IV heparin Analgesia/sedation: [place] as needed Lines/tubes: PIV GI prophylaxis: None Nutrition: Heart healthy/carb controlled Prognosis: Guarded Disposition: Continue medical management Plavix, monitor bleeding site, pain control, diabetes and high blood pressure control, PT eval and DC plan. Resident MD attestation: Patient was seen, examined and discussed with attending MD, Dr. Josh LAWSON MD Internal Medicine Resident, PGY3 [facility] Date of Service: Jun 22, 2025 Billing Provider: ISAAC BOWSER MD Common Visit Codes: [id number] INP/OBS CARE(HIGH) KYLIE LAWSON, AMPARO Jun 22, 2025 16:00 ISAAC BOWSER MD Jun 27, 2025 07:28
[2025-06-22] MEDS: INSULIN LISPRO 100 UNIT/ML INSULN.PEN MULTI-DOSE SQ SCH (18:00)
[2025-06-22] MEDS: insulin glargine (Lantus) pen - multi-dose SQ SCH (21:14)
[2025-06-22] MEDS: HYDROcodone/acetaminophen 10/325mg tab PO PRN (21:19)
[2025-06-23 06:00] VITALS: BP 148/67; PULSE 73; RESP 13; TEMP 98.2; O2SAT 98
[2025-06-23 06:01] LABS: MEAN PLATELET VOLUME 9.0 FL (7.4-10.4); RED CELL DISTRIBUTION WIDTH 14.1 % (11.5-14.5)
[2025-06-23 06:23] LABS: CREATININE 1.36 MG/DL (0.60-1.10); TOTAL CARBON DIOXIDE 27.3 MMOL/L (24-32); eCRCL 42 ML/MIN; eGFR 50 ML/MIN
[2025-06-23] MEDS: cyanocobalamin 500mcg tablet PO SCH (07:45)
[2025-06-23 10:00] VITALS: BP 121/57; PULSE 73; RESP 16; TEMP 98.3; O2SAT 98
[2025-06-23] MEDS ORDERED: APIX5TAB3 PO (10:18)
--- NOTE | 2025-06-23 11:35 | PROGRESS NOTE ---
Progress Note ID Providers to CC ~ Progress Note Progress Note: PAD management per ARIEL Wahl MD Jun 23, 2025 11:35
[2025-06-23] MEDS: INSULIN LISPRO 100 UNIT/ML INSULN.PEN MULTI-DOSE SQ SCH ×2 (11:39→13:46)
[2025-06-23] MEDS ORDERED: CLOP-32 PO (14:48)
[2025-06-23] MEDS ORDERED: LACT1CAP26 PO (16:40)
[2025-06-23] MEDS ORDERED: CEFD300C3 PO (16:40)
--- NOTE | 2025-06-23 17:35 | CARDIOLOGY REPORT ---
DATE OF SERVICE: 06/22/2025 DICTATING PHYSICIAN: COLBY PLASENCIA DO CARDIAC CATHETERIZATION REPORT REFERRING PHYSICIAN: Dexter Vidal MD. CLINICAL HISTORY: This 84-year-old man was admitted to this hospital on 06/20/2025 for right foot pain. He has discoloration of the first and second toes on his right foot. Ultrasonography and CT angiography have reported that the vessels below his knee are essentially occluded and providing poor filling distally. There is no description of obstructive disease in the superficial femoral artery. Nevertheless, because of the nature of his discomfort, a decision was made to go forward to see if there was some lesion that could be reopened to improve flow into the foot. PROCEDURES PERFORMED: * Left common femoral arterial access. * Left/ipsilateral iliac angiography. * Right/contralateral iliac angiography. * Placement of a crossover catheter in the right/contralateral common femoral artery. * Femoral, popliteal, and infrapopliteal angiography. * Percutaneous balloon angioplasty (distal right SFA/proximal popliteal artery). * Stent placement to distal superficial femoral artery/proximal popliteal artery. * Drug-eluting balloon angioplasty, right superficial femoral/proximal popliteal arteries. * Placement of a catheter in the right/contralateral popliteal artery. * Selective angiography of the popliteal and distal vessels with runoff to the foot. * Percutaneous arteriotomy closure (Mynx). * 60 minutes conscious sedation supervision. DESCRIPTION OF PROCEDURE: The patient was sedated with fentanyl and Versed. He was then prepared and draped in the usual manner. The left inguinal area was infiltrated with 1% lidocaine using a micropuncture set in the Seldinger technique. A 7-Wolof sheath was placed in the common femoral artery. 3000 units of heparin were given, but the patient was also receiving a continuous IV infusion of heparin. Using the existing sheath, angiography of the left iliac system was performed. A 6-Wolof ANKUSH catheter was positioned at the iliac bifurcation with the tip directed into the contralateral common iliac artery. A glide advantage wire was then passed down through the iliac system and well down into the right superficial femoral artery. The ANKUSH catheter and short sheath were removed and a 45-cm destination sheath was passed over the guidewire with the tip of this catheter placed in the right/contralateral common femoral artery. Arteriography of the femoral system and popliteal artery was performed with some degree of runoff distally. An amorphous-looking lesion in the distal SFA/proximal popliteal artery was identified. A 4-Wolof Lignum catheter was passed through this area and on pullback a 77 mmHg pressure gradient was identified in this location. Using the retained guidewire, the lesion complex was dilated with a 7 x 100 mm balloon. The residual stenosis was then covered with a 120 mm EV3 EverFlex self-expanding stent and the residual stenosis was then treated with drug-eluting balloons inflated in each case for 3 minutes duration. Final arteriography of the treated SFA/popliteal complex was performed. The 4-Wolof Lignum catheter was then passed again down into the popliteal artery and using a hand injection, imaging of the arterial flow beneath the knee was obtained. Next, the catheter and sheath were removed and hemostasis at the access site was achieved using a Mynx device. RESULTS: 1. No evidence for obstructive disease in either the left or the right iliac arterial systems. 2. The right profunda femoris arterial system was intact and unobstructed. 3. The right superficial femoral artery down to near Daniel's canal was unobstructed, but there was a high-grade amorphous stenosis in this location extending again to the proximal popliteal artery, which is already noted, had a 77 mmHg pressure gradient across this area. 4. The remainder of the popliteal artery was unobstructed. The tibioperoneal artery contained about a 40-50% narrowing. The anterior tibial artery was occluded proximally. The peroneal artery was intact and unobstructed but ended midway down the lower leg. The posterior tibial artery was a large vessel that was rimmed with calcium along its entire length, but it was completely unobstructed and had good flow into the foot. There was moderately good vascular arborization within the foot. Following balloon angioplasty, stenting and drug-eluting balloon angioplasty, the obstructive lesion in the distal SFA/proximal popliteal artery was successfully opened and dilated. RECOMMENDATIONS: Ongoing medical therapy. COLBY PLASENCIA DO TID: [id number] RECEIPT: [id number] BRYNN VELA
--- NOTE | 2025-06-23 19:34 | DISCHARGE SUMMARY-Residence ---
Discharge Summary Providers to CC Resident Creating Document: KYLIE LAWSON, RES ~ Discharge Summary Admission Diagnosis: PAD Hospital Course DATE OF ADMISSION: DATE OF DISCHARGE: Discharge Diagnosis\Comment: # Acute on chronic PAD # Deficit peripheral blood flow more in right than left foot # S/p Right SFA stent by Dr Abernathy on 06/22/25 # Possible Right leg cellulitis- pOA covered with broad-spectrum antibiotics # LAMIN likely secondary to renal tubular stasis # electrolyte/minerals imbalance-Hyperkalemia, hypomagnesemia # hyperchromic normocytic/dimorphic anemia # Uncontrolled type 2 diabetes mellitus # peripheral neuropathy # History of CAD s/p stent # Hypertension # mixed hyperlipidemia # Hypothyroidism # BPH Operations\Procedures: A stent placement at Rt SFA by Dr Abernathy on 06/22/25 with no complications Consultants: Dr. Abernathy, cardiology Dr. Vidal, surgery Complications: None Condition on DC: Stable New Medications: Cefdinir (Cefdinir) 300 Mg Capsule 1 CAP PO Q12H for 3 Days, #6 CAP 0 Refills Clopidogrel Bisulfate (Plavix) 75 Mg Tablet 1 TAB PO DAILY for 30 Days, #30 TAB 0 Refills Lactobacillus Rhamnosus (Culturelle) 10 Billion Cell Capsule 1 CAP PO DAILY for 14 Days, #14 CAP 0 Refills Continued Medications: Amlodipine Besylate (Amlodipine Besylate) 5 Mg Tablet 1 TAB PO DAILY Apixaban (Eliquis) 5 Mg Tablet 1 TAB PO Q12H for 30 Days, #60 TAB 0 Refills Atorvastatin Calcium (Atorvastatin Calcium) 20 Mg Tablet 1 TAB PO DAILY Empagliflozin/Metformin HCl (Synjardy 12.5-1,000 mg Tablet) 1 Each Tablet 1 TAB PO DAILY Fenofibrate Nanocrystallized (Fenofibrate) 145 Mg Tablet 1 TAB PO DAILY Gabapentin (Gabapentin) 300 Mg Capsule 1 CAP PO BID, CAP Gemfibrozil (Lopid) 600 Mg Tablet 1 TAB PO Q12H, TAB Insulin Glargine,Hum.rec.anlog* (Lantus*) 100 Unit/1 Ml Vial 44 UNITS SQ HS, VIAL Levothyroxine Sodium (Levothyroxine Sodium) 75 Mcg Tablet 1 TAB PO DAILY Lisinopril* (Lisinopril*) 30 Mg Tablet 30 MG PO DAILY Oxybutynin Chloride (Oxybutynin Chloride) 5 Mg Tablet 1 TAB PO Q12H, #20 TAB Phenazopyridine HCl (Pyridium) 100 Mg Tablet 1 TAB PO Q8H for urinary discomfort for 2 Days, #6 TAB 0 Refills Tamsulosin Hcl* (Flomax*) 0.4 Mg Cap.sr.24h 0.4 MG PO DAILY Discontinued Medications: Gabapentin (Gabapentin) 600 Mg Tablet 1 TAB PO TID for 30 Days, #90 TAB 0 Refills Gemfibrozil (Gemfibrozil) 600 Mg Tablet 600 MG PO BID Discharge Summary: An 84-year-old male with a history of type 2 diabetes mellitus on insulin and Jardiance, CAD s/p stent about five years ago, carotid stenosis s/p left carotid endarterectomy 10 years ago, hypertension, hyperlipidemia, hypothyroidism, neuropathy, BPH came to the ER with increased pain, discoloration, redness of right big toe. The patient is being admitted for acute PAD. Hospital course: Patient was admitted to the hospital for acute on chronic PID with multiple risk factors CAD and type 2 diabetes mellitus with supportive CTA lower extremity evidence of deficits blood flow causing peripheral arterial disease. He was given IV heparin infusion and IR and Surgery were consulted recommended for S tent replacement throught the angiogram by cardiology. Pain was controlled well with [place] and gabapentin as needed. Patient underwent angiogram and stent replacement at right superior femoral artery by Dr. Abernathy on 06/22/2025 with a having any complications. After the procedure, patient was given p.o. loading dose of Plavix 600 mg followed by recommendation to continue p.o. Plavix 75 mg daily in addition of his home medication Eliquis 5 mg b.i.d. after the procedure, patient puncture site over left femoral area was continuously monitored for possible bleeding and educated to avoid heavy weightlifting and exaggerated movement. Throughout his stay, patient's me was provided with heart healthy diet protocol. All of his home medications including high-intensity statin along with gemfibrozil and fenofibrate were appropriately reviewed and reconciled to continue during hospitalization. For his possible right leg cellulitis, patient was given IV ceftriaxone for three days which we will be transition to p.o. cefdinir with cultural on discharge. All of his electrolytes were replaced as necessary as per protocol including potassium and magnesium imbalances. His blood sugar was difficult to control but controlled well with subcutaneous Lantus, high-dose sliding scale protocol and additional lispro to range between 140 to 180s as much as possible during hospitalization. All of the patient's and family's questions and concerns were addressed with the best knowledge of our team before he was discharged back to home today. All of his vitals were stable at the moment with temp 98.3 F, FL 73/minute, RR 16/minute, BP 120/57 mm Hg, pulse oximetry 98% on room air. On examination, General: Well alert, well oriented, not confused, not agitated, not in acute distress, well cooperated during the physical. HEENT: Conjunctive are pink, sclerae clear, no icterus, pupil is equal in both sides, reactive to light, no ear discharge, no pharyngeal erythema or an edema, mouth and lips are moist. Neck: Supple, no JVD, no lymphadenopathy and thyromegaly. Lungs:Equal air entry on both lungs, no additional sounds Heart: S1-S2 regular sinus rhythm and, regular rate, no gallops, no rubs, no murmurs Abdomen: No visible peristalsis, Bowel sounds present on auscultation, soft, nontender, no guarding, no rigidity Extremities: Inflammed swollen, hot on touch redness right big toe with some discoloration were significantly improved over the right distal toes after the procedure. No obvious deformities, no pitting edema bilaterally, capillary r efill are reduced >2 secs, able to wiggle toes both sides, and normal sensation, but peripheral pulsations including dorsalis pedis are absent on the right side and decreased on left side-were improved on discharge after procedure. Left femoral area puncture site show some bruises but no active bleeding with the secured dressing at the moment. 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 Opacification begins to decline / decrease of the level of the tibioperoneal trunk with subsequent poor distal opacification with concern for occlusion of the level of the proximal to mid calf of the posterior tibial, peroneal, anterior tibial arteries. 2. Lack of opacification of the plantar and dorsalis pedis arteries of the right lower extremity however may be limited secondary to contrast timing and slow flow. -vascular venous ultrasound EMILIO on 06/20/2025 showed Significant abnormal noncompressibility compatible with calcification bilateral lower extremity a rteries -echocardiogram on 06/21/2025 showed LVEF 75%, hyperdynamic systolic function, RV mildly dilated, trace MR, TR, PI, normal pericardium and no effusion. -chest x-ray on 06/21/2025 showed No acute cardiopulmonary disease. -lower extremity angiography on 06/22/2025 Labs: Laboratory Tests Test 06/21/25 20:45 06/22/25 00:45 06/22/25 07:18 06/22/25 07:20 Glucometer 333 mg/dl APTT (Heparin Protocol) 60 SECONDS 69 SECONDS Coagulation Comments White Blood Count 5.8 X10'3 Red Blood Count 3.68 X10'6 Hemoglobin 11.9 g/dl Hematocrit 36.0 % Mean Corpuscular Volume 97.6 FL Mean Corpuscular Hemoglobin 32.3 PG Mean Corpuscular Hemoglobin Concent 33.0 g/dL Red Cell Distribution Width 13.7 % Platelet Count 250 X10'3 Mean Platelet Volume 9.3 FL Neutrophils (%) (Auto) 58.7 % Lymphocytes (%) (Auto) 30.2 % Monocytes (%) (Auto) 8.5 % Eosinophils (%) (Auto) 1.7 % Basophils (%) (Auto) 0.9 % Neutrophils # (Auto) 3.4 X10'3 Lymphocytes # (Auto) 1.8 X10'3 Monocytes # (Auto) 0.5 X10'3 Eosinophils # (Auto) 0.1 X10'3 Basophils # (Auto) 0.1 X10'3 CBC Comment Reticulocyte Count (auto) 0.8 % Absolute Reticulocyte Count [id number] /CUMM Prothrombin Time 10.8 SECONDS INR International Normalized Ratio 1.1 INR Iron Level 82 UG/DL Total Iron Binding Capacity 358 UG/DL Percent Iron Saturation 23 % Transferrin 273 mg/dL Sodium Level 138 MMOL/L Potassium Level 4.0 MMOL/L Chloride Level 107 MMOL/L Carbon Dioxide Level 24.7 MMOL/L Anion Gap 6 Blood Urea Nitrogen 21 MG/DL Creatinine 1.39 MG/DL Estimated GFR/1.73 m2 49 ML/MIN BUN/Creatinine Ratio 15.1 Glucose Level 270 MG/DL Calcium Level 9.1 MG/DL Ferritin 105 NG/ML Albumin 3.6 G/DL Chemistry Comments Test 06/22/25 07:23 06/22/25 07:45 06/22/25 17:18 06/22/25 21:05 Glucometer 256 mg/dl 194 mg/dl 273 mg/dl Magnesium Level 2.1 MG/DL Lactate Dehydrogenase 121 U/L Test 06/23/25 05:39 06/23/25 07:18 06/23/25 11:28 06/23/25 12:27 White Blood Count 7.8 X10'3 Red Blood Count 3.32 X10'6 Hemoglobin 10.9 g/dl Hematocrit 32.4 % Mean Corpuscular Volume 97.7 FL Mean Corpuscular Hemoglobin 32.9 PG Mean Corpuscular Hemoglobin Concent 33.7 g/dL Red Cell Distribution Width 14.1 % Platelet Count 246 X10'3 Mean Platelet Volume 9.0 FL Neutrophils (%) (Auto) 68.7 % Lymphocytes (%) (Auto) 21.5 % Monocytes (%) (Auto) 8.1 % Eosinophils (%) (Auto) 1.4 % Basophils (%) (Auto) 0.3 % Neutrophils # (Auto) 5.4 X10'3 Lymphocytes # (Auto) 1.7 X10'3 Monocytes # (Auto) 0.6 X10'3 Eosinophils # (Auto) 0.1 X10'3 Basophils # (Auto) 0.0 X10'3 CBC Comment Sodium Level 141 MMOL/L Potassium Level 4.1 MMOL/L Chloride Level 106 MMOL/L Carbon Dioxide Level 27.3 MMOL/L Anion Gap 8 Blood Urea Nitrogen 16 MG/DL Creatinine 1.36 MG/DL Estimated GFR/1.73 m2 50 ML/MIN BUN/Creatinine Ratio 11.8 Glucose Level 286 MG/DL Calcium Level 8.7 MG/DL Magnesium Level 1.7 MG/DL Albumin 3.5 G/DL Chemistry Comments Glucometer 267 mg/dl 417 mg/dl 411 mg/dl Test 06/23/25 13:36 Glucometer 393 mg/dl Discharge instructions: -immediate return to ER for any emergency conditions including severe uncontrolled bleeding from the left femoral puncture site, a normal unusual weakness/sensation over the bilateral lower legs along with severe intolerable progressive pain, any changes in discoloration of the extremities, feeling severe cold to touch to the extremities etc. -continue Plavix and Eliquis to prevent unnecessary stent thrombosis after discharge -follow up with the PCP and Dr. Mcclendon cardiology for further management and lab was rechecked including CBC CMP -control the pain with the prescribed medications/OTC Tylenol, avoid using NSAIDs for high blood pressure and cardiovascular disorders -encourage heart healthy diet, carb controlled diet -control the blood glucose level as much as possible -monitor urine flow , continue taking urology medications regularly Resident MD attestation: Patient was seen, examined and discussed with attending MD, Dr. Josh LAWSON MD Internal Medicine Resident, PGY3 [facility] *Problems/Diagnosis: (1) Arterial occlusion Status: Resolved Total Time Spent on D/C: > 30 Minutes Date of Service: Jun 23, 2025 Billing Provider: ISAAC BOWSER MD Common Visit Codes: 97726-VFN/OBS DISCH DAY >30min KYLIE LAWSON, RES Jun 23, 2025 16:43 ISAAC BOWSER MD Jun 27, 2025 07:28
[2025-06-23] MEDS ORDERED: insulin glargine (Lantus) pen - multi-dose SQ SCH (21:00)
== END 2025-06-23 15:05 | disposition home or self-care (01) | DRG 252 ==
LOC: ER 15:03 → ED HOLD 21:10 → SUR 3N 23:58
PROVIDERS: ADMIT Internal Medicine; ATTEND Family Medicine
PROC: B4201ZZ Computerized Tomography (CT Scan) of Abdominal Aorta using Low Osmolar Contrast (ICD-10-PCS; 2025-06-20)
PROC: B4241ZZ Computerized Tomography (CT Scan) of Superior Mesenteric Artery using Low Osmolar Contrast (ICD-10-PCS; 2025-06-20)
PROC: B4281ZZ Computerized Tomography (CT Scan) of Bilateral Renal Arteries using Low Osmolar Contrast (ICD-10-PCS; 2025-06-20)
PROC: B42C1ZZ Computerized Tomography (CT Scan) of Pelvic Arteries using Low Osmolar Contrast (ICD-10-PCS; 2025-06-20)
PROC: B42H1ZZ Computerized Tomography (CT Scan) of Bilateral Lower Extremity Arteries using Low Osmolar Contrast (ICD-10-PCS; 2025-06-20)
PROC: B4211ZZ Computerized Tomography (CT Scan) of Celiac Artery using Low Osmolar Contrast (ICD-10-PCS; 2025-06-20)
PROC: B42H1ZZ Computerized Tomography (CT Scan) of Bilateral Lower Extremity Arteries using Low Osmolar Contrast (ICD-10-PCS; 2025-06-20)
PROC: 047K34Z Dilation of Right Femoral Artery with Drug-eluting Intraluminal Device, Percutaneous Approach (ICD-10-PCS; principal; 2025-06-23)
PROC: 047M34Z Dilation of Right Popliteal Artery with Drug-eluting Intraluminal Device, Percutaneous Approach (ICD-10-PCS; 2025-06-23)
PROC: B41G1ZZ Fluoroscopy of Left Lower Extremity Arteries using Low Osmolar Contrast (ICD-10-PCS; 2025-06-23)
PROC: B41F1ZZ Fluoroscopy of Right Lower Extremity Arteries using Low Osmolar Contrast (ICD-10-PCS; 2025-06-23)
DX: E11.51 Type 2 diabetes mellitus with diabetic peripheral angiopathy without gangrene (principal); N17.0 Acute kidney failure with tubular necrosis; L03.115 Cellulitis of right lower limb; E11.42 Type 2 diabetes mellitus with diabetic polyneuropathy; E03.9 Hypothyroidism, unspecified; D64.9 Anemia, unspecified; I10 Essential (primary) hypertension; I25.10 Atherosclerotic heart disease of native coronary artery without angina pectoris; N40.0 Benign prostatic hyperplasia without lower urinary tract symptoms; E83.42 Hypomagnesemia; E87.5 Hyperkalemia; E78.2 Mixed hyperlipidemia; Z79.4 Long term (current) use of insulin; Z79.899 Other long term (current) drug therapy
CPT/HCPCS: 36247; 36415; 37226; 71045; 73706; 80048; 80053; 80061; 82607; 82728; 82948; 83036; 83540; 83550; 83615; 83735; 83930; 84443; 84466; 85025; 85045; 85610; 85730; 86885; 86900; 86901; 87081; 93306; 93922; 96361; 96374; 97161; 97530; 99152; 99153; 99285; A6258; C1725; C1760; C1769; C1876; C1894; C2623; G0378; J0696; J1644; J1815; J2003; J2250; J3010; J3490; J7030; J7070; Q9967